=== PATIENT | female | born 1940 | race Caucasian/White ===

== ENCOUNTER → 2022-01-21 11:35 | Outpatient (CLI) | payer MEDICARE, SELFPAY ==
--- NOTE | ~2022-01-21 | DEXA_ITS ---
Bone Density Report Name: ANTONINO HAWKINS Age: 81 Sex: Female Ethnicity: White Date of : 1940 Indication: postmenopausal; screening for osteoporosis; height loss; hysterectomy; Referring Provider: WARNER CUEVA Study: Bone densitometry was performed. Exam Date: January 21, 2022 Accession number: [id number] Bone Density: Region BMD T-score Z-score Classification AP Spine (L1-L4) 1.298 2.3 5.0 Normal Femoral Neck (Left) 0.704 -1.3 1.0 Osteopenia Total Hip (Left) 1.006 0.5 2.6 Normal Femoral Neck (Right) 0.827 -0.2 2.2 Normal Total Hip (Right) 0.973 0.3 2.4 Normal Total Hip Mean 0.990 0.4 2.5 Normal World Health Organization criteria for BMD impression classify patients as: Normal (T-score at or above -1.0), Osteopenia (T-score between -1.0 and -2.5), or Osteoporosis (T-score at or below -2.5). 10-year Fracture Risk(1): Major Osteoporotic Fracture 11% Hip Fracture 2.4% Reported Risk Factors: [place] (), Neck BMD=0.704, BMI=41.2 (1) FRAX(R) Version 3.08. Fracture probability calculated for an untreated patient. Fracture probability may be lower if the patient has received treatment. Clinical Information Provided by Patient: Has used the following medications: Vitamin D Has the following medical conditions: Hysterectomy Patient maximum height was 66 Menopause Age: 52 No regular weight bearing exercise Onset of menses at age 11 Number of children 3 Impression: The patient has low bone mass, based on the Left Femoral Neck T-score. The patient has an estimated ten-year risk of hip fracture of 2.4% and an estimated ten-year risk of major fracture of 11%, based on the WHO FRAX algorithm. Discussion: BONE DENSITY IS LOW AT ONE OR MORE SKELETAL SITES. This patient's lowest T-score is low at one or more skeletal sites. It meets the World Health Organization's (WHO) criteria for ?low bone mass? (T-score between -1.0 and -2.5). The patient's 10-year risk of fracture as calculated by FRAX is less than the threshold where pharmacological therapy is recommended by the National Osteoporosis Foundation (NOF). However, all treatment decisions require clinical judgment and consideration of individual patient factors, including patient preferences, comorbidities, previous drug use, risk factors not captured in the FRAX model (e.g., frailty, falls, vitamin D deficiency, increased bone turnover, interval significant decline in bone density) and possible under or overestimation of fracture risk by FRAX. The patient should follow a healthful lifestyle (good nutrition with adequate calcium and vitamin D, and appropriate weight-bearing exercise). Follow-Up: Consider repeating this study in 2 to 3 years to reassess this patient's status, or sooner if there is some new clinical indication. Rep
--- NOTE | ~2022-01-21 | MM_ITS ---
EXAMINATION: MM screening siddhartha BI w jesus HISTORY: Screening mammogram TECHNIQUE: Craniocaudal and mediolateral oblique 3-D tomosynthesis images were obtained and synthetic 2-D images were generated. CAD analysis was submitted and interpreted. COMPARISON: 10/23/2014 bilateral screening mammogram BREAST PARENCHYMAL COMPOSITION: The breasts are almost entirely fatty. FINDINGS: There is no evidence of suspicious mass, calcification, or architectural distortion to sugg est malignancy in either breast. There has been no suspicious interval change. IMPRESSION: 1. No mammographic evidence of malignancy. 2. Recommend routine screening mammography in one year. BI-RADS Category 1: Negative Reviewed, dictated and finalized at location A.
== END ==
DX: Z12.31 Encounter for screening mammogram for malignant neoplasm of breast (principal); Z78.0 Asymptomatic menopausal state; M85.852 Other specified disorders of bone density and structure, left thigh
CPT/HCPCS: 77063; 77067; 77080

== ENCOUNTER 2024-04-11 12:09 | Inpatient (IN) | payer MEDICARE, SELFPAY ==
[2024-04-11] VITALS (14 sets, daily range): BP systolic 122–198; BP diastolic 53–98; PULSE 77–97; RESP 18–22; TEMP 36.4–36.6; O2SAT 95–100; BMI 36.6
--- NOTE | ~2024-04-11 | NM_ITS ---
EXAMINATION: NM doni stress w perfusion DATE: 04/12/2024 12:40 INDICATION: Chest pain. TECHNIQUE: Rest images were obtained following intravenous administration of 9 mCi Tc99m tetrofosmin (Myoview). The patient was infused intravenously with Lexiscan (regadenoson). Then, 28.3 mCi Tc99m te trofosmin (Myoview) was administered intravenously, and stress images were obtained. Data was reconst ructed into short axis and horizontal and vertical long axis SPECT images. Gated SPECT images were al so obtained. COMPARISON: None. FINDINGS: Breast attenuation artifact is noted. There is a moderate-sized, moderate-severity, fixed p erfusion defect involving apical septal, mid anteroseptal, and mid inferoseptal segments of left vent ricle, consistent with infarct. No reversible component to suggest ischemia. There is no segmental wa ll motion abnormality. Left ventricular ejection fraction measures >70%. IMPRESSION: 1. Moderate-sized area of mild infarct involving apical septal, mid anteroseptal, and mid inferosepta l segments of left ventricle. 2. Normal left ventricular ejection fraction measuring >70%. Reviewed, dictated and finalized at location A. IMPRESSION: 1. Moderate-sized area of mild infarct involving apical septal, mid anterosepta l, and mid inferoseptal segments of left ventricle. 2. Normal left ventricular ejection fraction measuring >70%.
--- NOTE | ~2024-04-11 | CT_ITS ---
EXAMINATION: CTA chest PE protocol DATE: 04/13/2024 10:29 INDICATION: Chest pain. TECHNIQUE: Computed tomography angiography (CTA) of the chest was performed with 100 mL Omnipaque-350 intravenous contrast timed to evaluate the pulmonary arteries. Coronal maximum intensity projection 3D-reconstructions were created by the technologist. Automated exposure control and iterative reconst ruction technique were employed. The dose-length product was 589.25 mGy-cm. COMPARISON: None. FINDINGS: There is mild atelectasis bilaterally. There is mild scarring at right lung apex. No pleura l effusion. The heart size is normal. No pericardial effusion. There are acute pulmonary emboli in al l lobes including in the distal right main pulmonary artery. There is severe cervical and thoracic sp ondylosis. Thoracic levoscoliosis is noted. IMPRESSION: 1. Acute pulmonary emboli in all lobes. Reviewed, dictated and finalized at location A.
--- NOTE | ~2024-04-11 | XR_ITS ---
EXAMINATION: XR chest 2V DATE: 04/11/2024 15:46 INDICATION: Shortness of breath. TECHNIQUE: Frontal and lateral views of the chest were obtained. COMPARISON: None. FINDINGS: There is mild elevation of right hemidiaphragm. No pneumonia, pleural effusion, or pneumoth orax. The heart size is normal. IMPRESSION: 1. No acute cardiopulmonary disease. Reviewed, dictated and finalized at location A.
--- NOTE | ~2024-04-11 | US_ITS ---
EXAMINATION: US venous doppler [facility] DATE: 04/11/2024 15:44 INDICATION: Lower limb edema. TECHNIQUE: Grayscale ultrasound images without and with compression and Doppler ultrasound images of the bilateral lower extremity veins were obtained. COMPARISON: None. FINDINGS: The visualized portions of right common femoral vein, profunda (deep) femoral vein, femoral vein, pop liteal vein, peroneal veins, posterior tibial veins, and greater saphenous vein outflow are patent. The visualized portions of left common femoral vein, profunda femoral vein, femoral vein, popliteal v ein, peroneal veins, posterior tibial veins, and greater saphenous vein outflow are patent. IMPRESSION: 1. No deep venous thrombosis. Reviewed, dictated and finalized at location A.
--- NOTE | 2024-04-11 12:30 | ECG_ITS ---
Test Date: 2024-04-11 12:46:48 Measurements Intervals [place] Rate: 93 P: 14 CT: 160 QRS: -33 QRSD: 149 T: 106 QT: 405 QTc: 505 Interpretive Statements SINUS RHYTHM LEFT AXIS DEVIATION LEFT BUNDLE BRANCH BLOCK BASELINE ARTIFACT- I, II, III, AVR, AVL, AVF, V1-V6 ABNORMAL ECG No previous ECG available for comparison Electronically Signed On 04-11-2024 12:51:19 CDT by Skyler Shah D.O.
--- NOTE | 2024-04-11 14:45 | ED.SOB ---
HPI - SOB/Dyspnea General Chief Complaint: Shortness of Breath/Dyspnea <Brooke Trinidad PA-C - Last Filed: 04/13/24 10:40> Stated Complaint: shortness of breath <Brooke Trinidad PA-C - Last Filed: 04/13/24 10:40> Time Seen by Provider: 04/11/24 14:45 <Brooke Trinidad PA-C - Last Filed: 04/13/24 10:40> Focused HPI: This is an 83-year-old female that presents to the emergency department for shortness of breath. Ongoing over the last week. Reports associated cough. Also reports swelling in her lower legs. Reports some chest heaviness. Denies fevers. GENERAL: Well-appearing, well-nourished, and in no acute distress. HEAD: Normocephalic, atraumatic. CHEST: Clear to auscultation. ?No respiratory distress. HEART: Regular rate and rhythm.? NEURO: ?Alert and oriented x3. Patient screened in triage and initial orders placed.? ?Additional care and disposition to be based upon?diagnostic testing and treatment. <Brooke Trinidad PA-C - Last Filed: 04/13/24 10:40> History of Present Illness HPI Narrative: Agree with the HPI. Patient reports progressive dyspnea on exertion over last week and a half. Reports occasional when she is exerting herself she is so dyspneic and has somewhat chest pressure that she becomes diaphoretic. She has no history of [place]. Her last stress test was 6 years ago. She gets most of her care from [facility]. Patient has developed new edema in her legs bilaterally over the same amount of time. <Kush Ortega MD - Last Filed: 04/11/24 22:09> Related Data Home Medications: Home Medications Medication Instructions Recorded Confirmed acetaminophen 325 mg capsule 325 mg PO ONCE PRN Pain 04/11/24 04/11/24 (Tylenol) aspirin 325 mg tablet 650 mg PO HS 04/11/24 04/11/24 levothyroxine 125 mcg tablet 125 mcg PO DAILY 04/11/24 04/11/24 losartan 100 mg tablet 100 mg PO DAILY 04/11/24 04/11/24 <Brooke Trinidad PA-C - Last Filed: 04/13/24 10:40> Allergies/Adverse Reactions: Allergies Allergy/AdvReac Type Severity Reaction Status Date / Time codeine Allergy Mild ANXIETY Verified 04/11/24 19:34 Penicillins Allergy Mild ITCHING Verified 04/11/24 19:34 AND SWELLING <Brooke Trinidad PA-C - Last Filed: 04/13/24 10:40> Review of Systems Review of Systems: All systems reviewed & are unremarkable except as noted in HPI and below <Kush Ortega MD - Last Filed: 04/11/24 22:09> Constitutional: Constitutional: Reports no additional constitutional complaints <Kush Ortega MD - Last Filed: 04/11/24 22:09> ENT: Reports system reviewed and no additional complaints, except as documented <Kush Ortega MD - Last Filed: 04/11/24 22:09> Cardiovascular: Cardiovascular: Reports chest pain, Denies rapid heart rate and Denies radiating jaw, neck or arm pain <Kush Ortega MD - Last Filed: 04/11/24 22:09> Respiratory: Respiratory: Denies cough, Reports dyspnea and Denies wheezing <Kush Ortega MD - Last Filed: 04/11/24 22:09> Gastrointestinal: Gastrointestinal: Reports no additional gastrointestinal complaints <Kush Ortega MD - Last Filed: 04/11/24 22:09> [facility] Past Medical History Medical History: Medical History (Updated 04/11/24 @ 22:22 by Aure Marshall PA-C) Hypertension Hypothyroidism Psoriatic arthritis <Brooke Trinidad PA-C - Last Filed: 04/13/24 10:40> Surgical History Surgical History: Surgical History (Updated 04/11/24 @ 22:19 by Aure Marshall PA-C) History of endometrial biopsy History of left cataract extraction History of total abdominal hysterectomy and bilateral salpingo-oophorectomy (01/2015) <Brooke Trinidad PA-C - Last Filed: 04/13/24 10:40> Family History Family History: Family History Son Blastic NK-cell lymphoma Mother Hypertension Acute myocardial infarction Congestive heart failure Mother Chronic obstructive pu
[2024-04-11 16:11] LABS: Basophils Absolute Auto 0.1 K/mm3 (0.0-0.1); Basophils Percent Auto 0.6 % (0.2-1.2); Eosinophils Absolute Auto 0.1 K/mm3 (0-0.3); Eosinophils Percent Auto 0.9 % (0-4.4); Hematocrit 43.6 % (37.0-47.0); Hemoglobin 14.2 g/dL (12.0-15.0); Immature Granulocyte Absolute 0.04 K/mm3 (0.00-0.031); Immature Granulocyte Percent A 0.4 % (0-0.5); Lymphocytes Absolute Auto 3.91 K/mm3 (0.9-3.2); Lymphocytes Percent Auto 36.2 % (18.3-44.2); Mean Corpuscular HGB Conc 32.6 g/dl (32-36); Mean Corpuscular Hemoglobin 30.9 pg (26-34); Mean Platelet Volume 9.5 fl (7.4-10.4); Monocytes Absolute Auto 0.7 K/mm3 (0.1-0.6); Monocytes Percent Auto 6.9 % (2.6-8.5); Neutrophils Absolute Auto 5.9 K/mm3 (1.3-6.7); Platelet Count Result 160 k/mm3 (150-375); Red Blood Count 4.59 M/mm3 (4.2-5.4); Red Cell Distribution Width 13.4 % (11.5-14.5); White Blood Count 10.8 K/mm3 (4.5-10.0)
[2024-04-11 16:22] LABS: Alanine Aminotransferase 21 U/L (6-35); Albumin Level 4.3 g/dL (3.5-5.1); Alkaline Phosphatase 87 U/L (38-126); Anion Gap 8 mmol/L (4-12); Aspartate Amino Transferase 31 U/L (14-36); Bilirubin,Total 2.3 mg/dL (0.2-1.3); Blood Urea Nitrogen 17 mg/dL (7-17); Calcium 9.2 mg/dL (8.4-10.2); Carbon Dioxide 29 mmol/L (22-30); Chloride 98 mmol/L (98-107); Estimated CRCL calculation 40 ml/min; Estimated Glomerular Filt Rate 47; Glucose 92 mg/dL (65-110); Lipase 89 U/L (23-300); Partial Thromboplastin Time 24.3 Seconds (22.3-36.8); Potassium 3.4 mmol/L (3.4-5.0); Sodium 135 mmol/L (137-145)
[2024-04-11 16:34] LABS: Troponin I 0.022 ng/mL (0.000-0.034)
[2024-04-11 16:46] LABS: Influenza A QL RT-PCR Negative (Negative); Influenza B QL RT-PCR Negative (Negative); RSV RNA, RT-PCR Negative (Negative); SARS-CoV-2 RNA PCR Negative (Negative)
[2024-04-11 17:14] LABS: Troponin I 0.023 ng/mL (0.000-0.034)
--- NOTE | 2024-04-11 17:55 | PM.IMHP ---
H&P: HPI History of Present Illness Date/Time: 04/11/24 18:30 Chief Complaint: Shortness of breath and chest heaviness. Narrative: This is an 83-year-old female with hypertension and hypothyroidism who presented to the emergency department via private vehicle for evaluation of shortness of breath and chest heaviness. The patient provides the following history. Last week she went shopping and while walking around the store she felt some heaviness on the left side of her chest associated with sweats and increasing shortness of breath. Her symptoms improved with rest. However she continues to have intermittent symptoms which seemed to be related to exertion. She has no known history of cardiac disease and reports having a negative stress test done several years ago. She denies syncope, near syncope, pleuritic pain, orthopnea, paroxysmal nocturnal dyspnea, nausea, vomiting, and calf pain. In the ED: She was afebrile on arrival. Blood pressures have been running high, in the 170s to 180s systolic. Labs are significant for WBC count of 10.8, sodium 135, creatinine 1.10, total bilirubin 2.3, troponin 0.022. EKG showed sinus rhythm with left axis deviation left bundle-branch block. She tested negative for influenza, RSV, and COVID. Lower extremity venous Doppler ultrasounds were negative for DVT. Chest x-ray showed no acute cardiopulmonary disease. She is being admitted in this setting for close monitoring and Cardiology consultation. Review of Systems Review of Systems: 12 systems were reviewed and are negative except for as per HPI. [facility] Past Medical History Medical History (Updated 04/11/24 @ 22:22 by Aure Marshall PA-C) Hypertension Hypothyroidism Psoriatic arthritis Surgical History Surgical History (Updated 04/11/24 @ 22:19 by Aure Marshall PA-C) History of endometrial biopsy History of left cataract extraction History of total abdominal hysterectomy and bilateral salpingo-oophorectomy (01/2015) Family History Family History Son Blastic NK-cell lymphoma Mother Hypertension Acute myocardial infarction Congestive heart failure Mother Chronic obstructive pulmonary disease Social History Social History (Updated 04/11/24 @ 22:19 by Aure Marshall PA-C) Social History: Surrogate medical decision maker: Emerald Garcia, daughter. Code status: Full code. Smoking status: Never smoker Alcohol intake: current Other substance usage details: 1 drink approximately every 4 months Do You Feel Safe in your Home?: Yes Lack of Transportation: No Lack of Food: Never True Current Housing: I Have Housing Concerned About Future Housing: No Difficulty Paying Gas/Electric Bills: No Difficulty Paying for Meds: No Currently Unemployed: No Education: Trade/Vocational Certificate Difficulty w/ Childcare or Family Care: No Spiritual care concerns: No Meds Home Medications and Allergies Home Medications Medication Instructions Recorded Confirmed Type acetaminophen 325 mg capsule 325 mg PO ONCE PRN Pain 04/11/24 04/11/24 History (Tylenol) aspirin 325 mg tablet 650 mg PO HS 04/11/24 04/11/24 History levothyroxine 125 mcg tablet 125 mcg PO DAILY 04/11/24 04/11/24 History losartan 100 mg tablet 100 mg PO DAILY 04/11/24 04/11/24 History Allergies Allergy/AdvReac Type Severity Reaction Status Date / Time codeine Allergy Mild ANXIETY Verified 04/11/24 19:34 Penicillins Allergy Mild ITCHING Verified 04/11/24 19:34 AND SWELLING Vital Signs Vital Signs - 24 hr 04/11/24 12:20 04/11/24 15:10 04/11/24 14:59 Temperature 97.6 F 97.7 F Pulse Rate 97 83 Respiratory Rate 22 H 20 Blood Pressure 122/66 180/67 H Pulse Oximetry 97 100 Oxygen Delivery Room Air Room Air 04/11/24 16:01 04/11/24 16:31 04/11/24 17:01 Temperature 97.8 F 97.8 F Pulse Rate 95 84 82 Respiratory Rate 19 19 18 Blood Pressure
--- NOTE | 2024-04-11 19:08 | ADMGEN ---
This patient, Adamaris Elliott, was admitted to IMU Room 206-02. Patient/family oriented to hospital policies and general routines including ID bracelet, bed and alarms, visiting hours, pain management, procedures, bathroom and other care routines, personal items, smoking policy, room service/diet, and visiting hours. Information on how to activate the Rapid Response Team has been discussed. Patient/Family are encouraged to report perceived risks to care and to ask questions if they do not understand what they are told or what they should do.
[2024-04-11] MEDS: carvediloL 6.25 MG TABLET PO (20:44)
[2024-04-11] MEDS: ACETAMINOPHEN 325 MG TABLET 650 MG PO (20:45)
[2024-04-11 21:24] LABS: Cholesterol 221 mg/dL (0-200); HDL Direct 89 mg/dL; Triglycerides 76 mg/dL (<150)
[2024-04-11 21:46] LABS: LDL Cholesterol Direct 104 mg/dL
[2024-04-11 21:47] LABS: Troponin I 0.025 ng/mL (0.000-0.034)
[2024-04-12] VITALS (18 sets, daily range): BP systolic 138–167; BP diastolic 52–71; PULSE 67–103; RESP 16–20; TEMP 36–36.6; O2SAT 94–99
--- NOTE | 2024-04-12 | ECHO_ITS ---
Patient Info Name: Adamaris Elliott Age: 83 years : 1940 Gender: Female Ht: 65 in Wt: 223 lbs BSA: 2.20 m2 HR: 72 bpm BP: 161 / 71 mmHg Heart Rhythm: Sinus Rhythm Technical Quality: Fair Exam Date: 04/12/2024 4:15 PM Exam Location: Echo Lab Patient Status: Inpatient Admit Date: 04/12/2024 Staff Ordering Physician: Skyler Shah DO Lei Maker: Ella Ji RDCS Attending Provider: Ronak Resendez MD Referring Physician: Pablo ROSS; Exam Type: CA echo doppler color flow Study Info Indications - sob Complete two-dimensional, color flow and Doppler transthoracic echocardiogram is performed with contrast to opacify the left ventricle and to improve the deliniation of the left ventricle endocardial borders. Contrast/Agitated Saline Contrast/Ag. Saline: Definity Amount: 2.00 ml Administered By: Ella Ji RDCS Existing IV Access: Yes IV Access Condition: patent with no signs of infiltration Summary 1. Definity contrast administered improved wall motion interpretation. 2. Left ventricular chamber dimension is normal. 3. Left ventricular systolic function is normal, estimated at 60-65%. 4. Left ventricular septal wall motion is abnormal with septal motion related to bundle branch block. 5. The left ventricular diastolic function is grade I diastolic dysfunction. 6. E/e' 12 is mildly elevated. 7. There is mild aortic valve sclerosis. 8. No pulmonary hypertension, estimated pulmonary arterial systolic pressure is 32 mmHg. Left Ventricle Definity contrast administered improved wall motion interpretation. E/e' 12 is mildly elevated. Left ventricular chamber dimension is normal. Left ventricular systolic function is normal, estimated at 60-65%. Left ventricular septal wall motion is abnormal with septal motion related to bundle branch block. The left ventricular diastolic function is grade I diastolic dysfunction. Right Ventricle Right ventricular chamber dimension is normal. Right ventricular systolic function is normal. Left Atria Left atrial chamber dimension is normal. Right Atria Right atrial chamber dimension is normal. Aortic Valve The aortic valve is trileaflet. There is mild aortic valve sclerosis. There is no aortic valve stenosis. There is no aortic valve regurgitation. Pulmonic Valve There is no pulmonic regurgitation. Mitral Valve There is no mitral valve stenosis. There is no mitral valve regurgitation. Tricuspid Valve There is no tricuspid valve regurgitation. No pulmonary hypertension, estimated pulmonary arterial systolic pressure is 32 mmHg. Pericardium/Pleural There is no pericardial effusion. Inferior Vena Cava Normal inferior vena cava with >50% collapse upon inspiration consistent with normal right atrial pressure, 5 mmHg. Aorta The aortic root size at the sinus of Valsalva is normal. Left Ventricular Outflow Tract Name Value Normal LVOT 2D LVOT Diameter 2.0 cm LVOT Doppler LVOT Peak Gradient 4 mmHg LVOT Mean Gradient 2 mmHg LVOT VTI 19 cm LVOT VTI/AV VTI Ratio 0.6
--- NOTE | 2024-04-12 00:09 | PC.NURSE ---
This RN assumed care of patient 04/12 2026. Report received from Chio Stinson RN
[2024-04-12 05:16] LABS: Hematocrit 39.5 % (37.0-47.0); Hemoglobin 12.7 g/dL (12.0-15.0); Mean Corpuscular HGB Conc 32.2 g/dl (32-36); Mean Corpuscular Hemoglobin 30.6 pg (26-34); Mean Corpuscular Volume 95.2 fl (80-100); Mean Platelet Volume 9.9 fl (7.4-10.4); Platelet Count Result 154 k/mm3 (150-375); Red Blood Count 4.15 M/mm3 (4.2-5.4); Red Cell Distribution Width 13.5 % (11.5-14.5); White Blood Count 8.9 K/mm3 (4.5-10.0)
[2024-04-12 05:31] LABS: Cholesterol 197 mg/dL (0-200); HDL Direct 78 mg/dL; Triglycerides 68 mg/dL (<150)
[2024-04-12 05:35] LABS: Alanine Aminotransferase 18 U/L (6-35); Albumin Level 3.5 g/dL (3.5-5.1); Alkaline Phosphatase 69 U/L (38-126); Anion Gap 7 mmol/L (4-12); Aspartate Amino Transferase 26 U/L (14-36); Blood Urea Nitrogen 18 mg/dL (7-17); Calcium 8.6 mg/dL (8.4-10.2); Carbon Dioxide 27 mmol/L (22-30); Chloride 103 mmol/L (98-107); Estimated CRCL calculation 38 ml/min; Estimated Glomerular Filt Rate 43; Glucose 118 mg/dL (65-110); Magnesium 1.9 mg/dL (1.6-2.3); Potassium 3.6 mmol/L (3.4-5.0); Sodium 137 mmol/L (137-145)
[2024-04-12 05:42] LABS: LDL Cholesterol Direct 88 mg/dL
[2024-04-12 06:00] LABS: D Dimer 13.61 ug/mL (<0.48)
[2024-04-12] MEDS: LEVOTHYROXINE SODIUM 125 MCG TABLET PO (06:18)
--- NOTE | 2024-04-12 08:07 | PM.CNCAR ---
Assessment and Plan Assessment and plan (1) Chest pain: Qualifiers: Chest pain type: unspecified Qualified Code(s): R07.9 - Chest pain, unspecified Code(s): R07.9 - Chest pain, unspecified Status: Acute Assessment and Plan: She has been r/o for SD by serial troponin and EKG. Obtain lexiscan myoview stress test. (2) Dyspnea on exertion: Code(s): R06.09 - Other forms of dyspnea Status: Acute Assessment and Plan: Obtain echo. (3) Hypertension: Code(s): I10 - Essential (primary) hypertension Status: Acute Assessment and Plan: High. Started Coreg 6.25 mg BID. Monitor BP. History of Present Illness History of Present Illness Consult date/time: 04/12/24 08:07 Reason For Visit: Dyspnea on exertion Narrative: 83 yr old woman presents to ER with chest pain and sob. She has a history of hypertension. Reports having chest pressure in mid chest and sob yesterday while walking around a store, and improved with rest. She took aspirin and advil yesterday for it. Currently not having chest discomfort or sob. Denies palpitations, edema, dizziness. Review of Systems Review of Systems: All systems reviewed & are unremarkable except as noted in HPI and below Constitutional: Constitutional: Reports as per HPI, Denies chills and Denies fever(s) Cardiovascular: Cardiovascular: Reports as per HPI, Reports chest pain and Denies irregular heart rhythm Respiratory: Respiratory: Reports as per HPI and Reports dyspnea Gastrointestinal: Gastrointestinal: Reports as per HPI and Denies abdominal pain Genitourinary: Genitourinary: Reports as per HPI and Denies dysuria Musculoskeletal: Musculoskeletal: Reports as per HPI Neurologic: Reports as per HPI, Denies dizziness and Denies syncope [facility] Past Medical History Medical History (Updated 04/11/24 @ 22:22 by Aure Marshall PA-C) Hypertension Hypothyroidism Psoriatic arthritis Surgical History Surgical History (Updated 04/11/24 @ 22:19 by Aure Marshall PA-C) History of endometrial biopsy History of left cataract extraction History of total abdominal hysterectomy and bilateral salpingo-oophorectomy (01/2015) Family History Family History Son Blastic NK-cell lymphoma Mother Hypertension Acute myocardial infarction Congestive heart failure Mother Chronic obstructive pulmonary disease Social History Social History (Updated 04/11/24 @ 22:19 by Aure Marshall PA-C) Social History: Surrogate medical decision maker: Emerald Garcia, daughter. Code status: Full code. Smoking status: Never smoker Alcohol intake: current Other substance usage details: 1 drink approximately every 4 months Do You Feel Safe in your Home?: Yes Lack of Transportation: No Lack of Food: Never True Current Housing: I Have Housing Concerned About Future Housing: No Difficulty Paying Gas/Electric Bills: No Difficulty Paying for Meds: No Currently Unemployed: No Education: Trade/Vocational Certificate Difficulty w/ Childcare or Family Care: No Spiritual care concerns: No Meds Home Medications and Allergies Home Medications Medication Instructions Recorded Confirmed Type acetaminophen 325 mg capsule 325 mg PO ONCE PRN Pain 04/11/24 04/11/24 History (Tylenol) aspirin 325 mg tablet 650 mg PO HS 04/11/24 04/11/24 History levothyroxine 125 mcg tablet 125 mcg PO DAILY 04/11/24 04/11/24 History losartan 100 mg tablet 100 mg PO DAILY 04/11/24 04/11/24 History Allergies Allergy/AdvReac Type Severity Reaction Status Date / Time codeine Allergy Mild ANXIETY Verified 04/11/24 19:34 Penicillins Allergy Mild ITCHING Verified 04/11/24 19:34 AND SWELLING Vital Signs Vital Signs - 24 hr 04/11/24 12:20 04/11/24 15:10 04/11/24 14:59 Temperature 97.6 F 97.7 F Pulse Rate 97 83 Respiratory Rate 22 H 20 B
--- NOTE | 2024-04-12 08:31 | PM.IMPN ---
Progress Note: A&P Assessment and Plan (1) Chest pain: Qualifiers: Chest pain type: unspecified Qualified Code(s): R07.9 - Chest pain, unspecified Code(s): R07.9 - Chest pain, unspecified Status: Acute (2) Lower extremity edema: Code(s): R60.0 - Localized edema Status: Acute (3) Hypertension: Code(s): I10 - Essential (primary) hypertension Status: Acute (4) Hypothyroidism: Code(s): E03.9 - Hypothyroidism, unspecified Status: Acute Plan This is an 83-year-old female with hypertension and hypothyroidism who presented to the emergency department via private vehicle for evaluation of shortness of breath and chest heaviness. The patient provides the following history. Last week she went shopping and while walking around the store she felt some heaviness on the left side of her chest associated with sweats and increasing shortness of breath. Her symptoms improved with rest. However she continues to have intermittent symptoms which seemed to be related to exertion. She has no known history of cardiac disease and reports having a negative stress test done several years ago. She denies syncope, near syncope, pleuritic pain, orthopnea, paroxysmal nocturnal dyspnea, nausea, vomiting, and calf pain. In the ED: She was afebrile on arrival. Blood pressures have been running high, in the 170s to 180s systolic. Labs are significant for WBC count of 10.8, sodium 135, creatinine 1.10, total bilirubin 2.3, troponin 0.022. EKG showed sinus rhythm with left axis deviation left bundle-branch block. She tested negative for influenza, RSV, and COVID. Lower extremity venous Doppler ultrasounds were negative for DVT. Chest x-ray showed no acute cardiopulmonary disease. She is being admitted in this setting for close monitoring and Cardiology consultation. History is concerning for angina and she is being admitted for close monitoring and Cardiology consultation. Echocardiogram ordered. Lexiscan ordered . Lower extremity venous Doppler ultrasounds were negative for DVT however pulmonary embolism remains a consideration. D-dimer quite elevated. Will get CTA chest. Blood pressures have been running in the 170s to 180s systolic. She is on losartan 100 mg daily. Add carvedilol and continue to monitor. Echo pending. Check BNP DVT prophylaxis Lovenox code status full code Subjective Date/time seen: 09/10/24 08:31 Interval history: Shortness of breath on exertion noted since a month. Intermittent chest pain. Leg swelling. No nausea vomiting. Minimal cough Review of Systems Review of Systems: All systems reviewed & are unremarkable except as noted in HPI and below Exam Narrative: General: Nontoxic-appearing female sitting up in bed. HEENT: PERRL, EOMI. Sclera anicteric. Oral mucosa moist. Neck: Supple. No JVD. Respiratory: No respiratory distress. Lung sounds are clear to auscultation. Cardiovascular: Regular rate and rhythm with S1-S2. Gastrointestinal: Abdomen is soft, obese, nontender, and nondistended with positive bowel sounds. Skin: Warm and dry. Extremities: No cyanosis or clubbing. Bilateral lower extremity edema, left greater than right. No palpable knots or cords. Negative Sujata sign bilaterally. Radial and pedal pulses intact. Neurological: Alert. Cranial nerves 2-12 are grossly intact. No gross focal deficits to casual conversation. Psychiatric: Pleasant and cooperative with normal mood and affect. Objective Data Vital Signs Vital Signs: Vital Signs - 24 hr 04/11/24 12:20 04/11/24 15:10 04/11/24 14:59 Temperature 97.6 F 97.7 F Pulse Rate 97 83 Respiratory Rate 22 H 20 Blood Pressure 122/66 180/67 H Pulse Oximetry 97 100 Oxygen Delivery Room Air Room Air Fraction of Inspired Oxygen 04/11/24 16:01 04/11/24 16:31 04/11/24 17:01 Temperature 97.8 F 97.8 F Pulse Rate 95 84 82 Respiratory Rate 19 19 18 Blood Pressure 198/96 H 185/88 H 176/90 H
[2024-04-12] MEDS: LOSARTAN POTASSIUM 100 MG TABLET PO (09:06)
[2024-04-12] MEDS: carvediloL 6.25 MG TABLET PO (09:06)
[2024-04-12] MEDS: ENOXAPARIN 40 MG/0.4 ML SYRINGE SUB-Q (09:06)
--- NOTE | 2024-04-12 11:14 | PC.NURSE ---
Patient complained of pain at the IV site while down in CT scanner for CTA. IV site flushed multiple times prior to going to CT with no issues noted. Patient denied pain when flushed. States that the pain is at the site of the tape. The site was retaped, yet she still complained. We discussed her getting the test completed since the IV was working well and the patient agreed. When she got to CT she refused the test and stated that she would tell the doctor she refused.
[2024-04-12 12:17] LABS: NT Pro B Type Natriuretic Pept 879 pg/mL (19.9-100)
[2024-04-12] MEDS: ACETAMINOPHEN 325 MG TABLET 650 MG PO (14:41)
[2024-04-12] MEDS: ENOXAPARIN 120 MG/0.8 ML SYRINGE 105 MG SUB-Q (15:45)
[2024-04-12] MEDS: PERFLUTREN LIPID MICROSPHERES 1.5 ML VIAL DILUTED TO 10 ML TOTAL VOLUME IV PUSH (16:30)
--- NOTE | 2024-04-12 16:56 | IVDEFINITY ---
Prior to administration of IV Definity the patient was educated on the risks and benefits of the imaging enhancing agent including potential adverse side effects. The patient verbalized understanding. Allergies were verified. No exclusion criteria were identified and at least one of the following inclusion criteria were met: 1) physician request, 2) patient technically difficult to image (per the [place] [employer] guidelines of two or more segments not discernable within the apical view), or 3) questionable left ventricular function. ?
--- NOTE | 2024-04-12 20:05 | EST_ITS ---
Patient Info Name: Adamaris Elliott Age: 83 years : 1940 Gender: Female Ht: 65 in Wt: 223 lbs BSA: 2.20 m2 HR: 73 bpm BP: 182 / 86 mmHg Exam Date: 04/12/2024 11:25 AM Exam Location: Echo Lab Patient Status: Outpatient Admit Date: 04/11/2024 Staff Ordering Physician: Skyler Shah DO Attending Provider: Ronak Resendez MD Exercise Physician: Skyler Shah DO Exam Type: CA stress doni w NM Study Info A regadenoson stress test was performed. Summary 1. 1. Inconclusive lexiscan stress test for ischemic ST changes by ECG criteria due to baseline LBBB. 2. 2. Baseline hypertension. 3. 3. Nuclear scan to follow and will be reported separately. Please correlate with it. 4. 4. Patient informed of the above results. Protocol: Lexiscan Stress ECG Details Stage: REST Duration (min): 4 min : 37 sec HR (bpm): 73 SBP (mmHg): 182 DBP (mmHg): 86 Stage: REST Duration (min): 8 min : 26 sec HR (bpm): 73 SBP (mmHg): 182 DBP (mmHg): 86 Stage: STAGE 1 Duration (min): 0 min : 59 sec HR (bpm): 87 SBP (mmHg): 182 DBP (mmHg): 86 Stage: RECOVERY Duration (min): 1 min : 0 sec HR (bpm): 89 SBP (mmHg): 182 DBP (mmHg): 86 Stage: RECOVERY Duration (min): 2 min : 0 sec HR (bpm): 85 SBP (mmHg): 180 DBP (mmHg): 94 Stage: RECOVERY Duration (min): 3 min : 0 sec HR (bpm): 98 SBP (mmHg): 180 DBP (mmHg): 94 Stage: RECOVERY Duration (min): 4 min : 0 sec HR (bpm): 80 SBP (mmHg): 180 DBP (mmHg): 94 Stage: RECOVERY Duration (min): 4 min : 7 sec HR (bpm): 80 SBP (mmHg): 180 DBP (mmHg): 94 Rest HR: 73 bpm Peak HR: 126 bpm Rest Sys BP: 182 mmHg Peak Sys BP: 180 mmHg Max Pred HR: 137 bpm % Max Pred HR: 92 % Target HR: 116 bpm Max RPP: 22,680 bpm*mmHg Termination Reason: Completed protocol Cardiac Symptoms: Shortness of breath Total Time: 1 min : 0 sec Rest Ramsay BP: 86 mmHg Peak Ramsay BP: 94 mmHg Total Dose: 0.4 mg Resting ECG Sinus rhythm, LBBB. Stress ECG No ST changes. Arrhythmias None. Report Signatures
[2024-04-12] MEDS: ASPIRIN 325 MG TABLET 81 MG PO (20:18)
[2024-04-12] MEDS: carvediloL 12.5 MG TABLET PO (20:18)
[2024-04-13] VITALS (8 sets, daily range): BP systolic 142–161; BP diastolic 52–72; PULSE 63–84; RESP 16–22; TEMP 36.1–36.4; O2SAT 96–97
[2024-04-13 04:42] LABS: Basophils Absolute Auto 0.1 K/mm3 (0.0-0.1); Basophils Percent Auto 0.6 % (0.2-1.2); Eosinophils Absolute Auto 0.1 K/mm3 (0-0.3); Eosinophils Percent Auto 1.4 % (0-4.4); Hematocrit 37.4 % (37.0-47.0); Hemoglobin 11.8 g/dL (12.0-15.0); Immature Granulocyte Absolute 0.03 K/mm3 (0.00-0.031); Immature Granulocyte Percent A 0.4 % (0-0.5); Lymphocytes Absolute Auto 3.46 K/mm3 (0.9-3.2); Lymphocytes Percent Auto 41.3 % (18.3-44.2); Mean Corpuscular HGB Conc 31.6 g/dl (32-36); Mean Corpuscular Hemoglobin 30.3 pg (26-34); Mean Corpuscular Volume 95.9 fl (80-100); Monocytes Absolute Auto 0.6 K/mm3 (0.1-0.6); Monocytes Percent Auto 6.6 % (2.6-8.5); Neutrophils Absolute Auto 4.2 K/mm3 (1.3-6.7); Neutrophils Percent Auto 49.7 % (45.5-73.1); Platelet Count Result 152 k/mm3 (150-375); Red Cell Distribution Width 13.6 % (11.5-14.5); White Blood Count 8.4 K/mm3 (4.5-10.0)
[2024-04-13 04:58] LABS: Alanine Aminotransferase 17 U/L (6-35); Albumin Level 3.3 g/dL (3.5-5.1); Alkaline Phosphatase 65 U/L (38-126); Anion Gap 7 mmol/L (4-12); Aspartate Amino Transferase 29 U/L (14-36); Bilirubin,Total 1.8 mg/dL (0.2-1.3); Blood Urea Nitrogen 20 mg/dL (7-17); Calcium 8.6 mg/dL (8.4-10.2); Carbon Dioxide 25 mmol/L (22-30); Chloride 104 mmol/L (98-107); Estimated CRCL calculation 41 ml/min; Estimated Glomerular Filt Rate 47; Glucose 113 mg/dL (65-110); Magnesium 1.9 mg/dL (1.6-2.3); Potassium 3.9 mmol/L (3.4-5.0); Sodium 136 mmol/L (137-145)
[2024-04-13] MEDS: LEVOTHYROXINE SODIUM 125 MCG TABLET PO (05:52)
[2024-04-13] MEDS: ENOXAPARIN 120 MG/0.8 ML SYRINGE 105 MG SUB-Q (05:52)
--- NOTE | 2024-04-13 07:47 | PM.PNCARD ---
Progress Note: A&P Assessment and Plan (1) Chest pain: Qualifiers: Chest pain type: unspecified Qualified Code(s): R07.9 - Chest pain, unspecified Code(s): R07.9 - Chest pain, unspecified Status: Acute Assessment and Plan: Resolved. She has been r/o for [place] by serial troponin and EKG. 04/12/24 Lexiscan myoview stress test shows no reversible ischemia. (2) Dyspnea on exertion: Code(s): R06.09 - Other forms of dyspnea Status: Acute Assessment and Plan: 04/12/24 Echo shows EF 60-65%, grade I diastolic dysfunction (E/e' 12). (3) Hypertension: Code(s): I10 - Essential (primary) hypertension Status: Acute Assessment and Plan: High. Increase Coreg 12.5 mg BID and start Hydralazine 25 mg BID. Intolerant of Amlodipine due to chest pain in past. Monitor BP. If BP better later today, may d/c home and f/u with me in 1-2 weeks. Subjective Date/time seen: 04/13/24 07:47 Interval history: Denies chest pain or sob. Exam Const: General: cooperative, healthy appearing and comfortable Orientation/consciousness: oriented to person, oriented to place and oriented to time Resp: Auscultation: clear to auscultation bilaterally, no crackles, no rales, no rhonchi and no wheezes Cardio: Rate: regular rate Rhythm: regular rhythm Heart sounds: no murmurs Peripheral pulses: dorsalis pedis present Neuro: General: oriented to person, oriented to place and oriented to time Extrem: Right lower extremity: no edema Left lower extremity: no edema Objective Data Vital Signs Vital Signs: Vital Signs - 24 hr 04/12/24 08:02 04/12/24 08:00 04/12/24 08:00 Temperature Pulse Rate 70 70 Respiratory Rate 20 Blood Pressure Pulse Oximetry 98 98 Oxygen Delivery Room Air Room Air Fraction of Inspired Oxygen 04/12/24 12:45 04/12/24 12:00 04/12/24 12:00 Temperature 96.8 F L Pulse Rate 73 79 73 Respiratory Rate 20 20 Blood Pressure 138/58 L Pulse Oximetry 97 97 Oxygen Delivery Room Air Fraction of Inspired Oxygen 04/12/24 14:00 04/12/24 10:00 04/12/24 17:21 Temperature 97.2 F L Pulse Rate 98 72 69 Respiratory Rate 18 Blood Pressure 150/54 H Pulse Oximetry 98 Oxygen Delivery Fraction of Inspired Oxygen 04/12/24 16:00 04/12/24 16:00 04/12/24 18:00 Temperature Pulse Rate 67 69 77 Respiratory Rate 18 Blood Pressure Pulse Oximetry 98 Oxygen Delivery Room Air Fraction of Inspired Oxygen 21 04/12/24 20:00 04/12/24 20:18 04/12/24 20:00 Temperature 97.6 F Pulse Rate 75 72 Respiratory Rate 16 Blood Pressure 145/52 H Pulse Oximetry 99 Oxygen Delivery Room Air Fraction of Inspired Oxygen 04/12/24 20:00 04/12/24 23:34 04/12/24 23:45 Temperature 97.4 F L Pulse Rate 76 82 Respiratory Rate 20 Blood Pressure 167/54 H Pulse Oximetry 94 Oxygen Delivery Room Air Fraction of Inspired Oxygen 04/13/24 00:00 04/13/24 04:00 04/13/24 04:00 Temperature 97.5 F L Pulse Rate 63 64 Respiratory Rate 16 Blood Pressure 151/72 H Pulse Oximetry 97 Oxygen Delivery Room Air Fraction of Inspired Oxygen 04/13/24 04:00 Temperature Pulse Rate 68 Respiratory Rate Blood Pressure Pulse Oximetry Oxygen Delivery Fraction of Inspired Oxygen Intake/Output Intake/Output: Intake & Output 04/10/24 04/11/24 04/12/24 04/13/24 23:59 23:59 23:59 23:59 Intake Total 560 350 Output Total 0 Balance 560 350 Meds/Results Medications: Active Medications Generic Name Dose Route Start Last Admin Trade Name Freq PRN Reason Stop Dose Admin Acetaminophen 650 mg 04/11/24 17:34 04/12/24 14:41 Acetaminophen 325 Mg Tablet PO 650 mg Q4H PRN Administration Mild Pain (1-3) or Fever Hydrocodone Bitart/Acetaminophen 1 tab 04/11/24 17:34 Hydrocodone/Acetaminophen (*Crx) 5-325 Mg Tablet PO Q4H PRN Pain Rated 4-6 Aspirin 81 mg
[2024-04-13] MEDS: LOSARTAN POTASSIUM 100 MG TABLET PO (08:48)
[2024-04-13] MEDS: hydrALAZINE HCL 25 MG TABLET PO (08:48)
[2024-04-13] MEDS: carvediloL 12.5 MG TABLET PO (08:48)
[2024-04-13] MEDS: LORazepam INJ (*CRX) 2 MG/ML VIAL 0.5 MG IV PUSH (09:59)
--- NOTE | 2024-04-13 15:03 | PM.DS ---
DS: Admitting Diagnosis Discharge Date 04/13/24 Admitting Diagnosis Shortness of breath and CP DS: Discharge Diagnosis Discharge Diagnosis (1) Pulmonary embolism: Code(s): I26.99 - Other pulmonary embolism without acute cor pulmonale Status: Acute (2) Chest pain: Qualifiers: Chest pain type: unspecified Qualified Code(s): R07.9 - Chest pain, unspecified Code(s): R07.9 - Chest pain, unspecified Status: Acute (3) Lower extremity edema: Code(s): R60.0 - Localized edema Status: Acute (4) Hypertension: Code(s): I10 - Essential (primary) hypertension Status: Acute (5) Hypothyroidism: Code(s): E03.9 - Hypothyroidism, unspecified Status: Acute (6) Psoriatic arthritis: Code(s): L40.50 - Arthropathic psoriasis, unspecified Status: Acute DS: Summary Hospital Course Reason for hospitalization: 83yo female with hypertension and hypothyroidism who presented to the emergency department for evaluation of shortness of breath and chest heaviness. Please see H&P for details Hospital Course: Patient presented with shortness of breath and chest heaviness. She was afebrile on arrival. Blood pressures was in the 170s to 180s systolic. Labs are significant for WBC count of 10.8, sodium 135, creatinine 1.10, total bilirubin 2.3. Troponin negative x3. EKG showed sinus rhythm with left axis deviation and left bundle-branch block. Unclear if the bundle branch was new or old. She tested negative for influenza, RSV, and COVID. Lower extremity venous Doppler ultrasounds were negative for DVT. Chest x-ray showed no acute cardiopulmonary disease. She was admitted and Cardiology consulted. Total bili level trended down. Echo showing LV size and function normal with EF 60-65%, LV findings consistent with BBB, grade I diastolic dysfunction and normal RV without pulmonary HTN. No significant valvular disease. Lexiscan showing a moderate sized are of mild infarct involving the apical septal, mid anteroseptal and mid inferoseptal segments of the LV with EF >70%. These findings could be related to the BBB. AntiHTN medications were adjusted. DDimer was elevated at 13.6. She was started on therapeutic dosing of Lovenox on admission. CTA chest performed showing acute PE in all lobes but no heart strain noted. She was switched to Eliquis. She has been up walking with walker. Risk/benefit of Eliquis discussed. She overall did well and was able to be discharged on 04/13/24. Status at Discharge Cognitive/behavioral status at discharge: stable Time Spent with Patient Time attestation: Total time spent providing and/or coordinating discharge services: 34 minutes Exam Narrative: AF 96.9 142/52 68 18 96% ra Gen - NARD Chest - CTA bilaterally, nml RR CV - RRR S1/S2. Tele showing no acute dysrhythmias Abd - Soft, NT/ND, Positive BS Ext - trace pedal edema Psych - Nml mood and affect Skin - Warm and dry DS: Data Data Completed and Pending Labs on day of discharge: Labs from last 24 hours 04/13/24 04/13/24 03:58 03:57 WBC 8.4 RBC 3.90 L Hgb 11.8 L Hct 37.4 MCV 95.9 MCH 30.3 MCHC 31.6 L RDW 13.6 Plt Count 152 MPV 10.0 Immature Gran % (Auto) 0.4 Neut % (Auto) 49.7 Lymph % (Auto) 41.3 [place] % (Auto) 6.6 Eos % (Auto) 1.4 Baso % (Auto) 0.6 Lymph # (Auto) 3.46 H [place] # (Auto) 0.6 Eos # (Auto) 0.1 Baso # (Auto) 0.1 Abs Immat Gran (auto) 0.03 Absolute Neuts (auto) 4.2 Absolute Nucleated RBC 0.000 Nucleated RBC % 0.0 Sodium 136 L Potassium 3.9 Chloride 104 Carbon Dioxide 25 Anion Gap 7 BUN 20 H Creatinine 1.10 H Estim Creat Clear Calc 41 Estimated GFR 47 L Glucose 113 H Calcium 8.6 Magnesium 1.9 Total Bilirubin 1.8 H AST 29 ALT 17 Alkaline Phosphatase 65 Total Protein 6.0 L Albumin 3.3 L Discharge Plan Discharge Attending physician on discha
== END 2024-04-13 16:24 | disposition home or self-care (01) | DRG 176 ==
LOC: ANHED 17:54 → ANHIMU 18:22
PROVIDERS: Internal Medicine Cardiovascular Disease; Physician Assistant; Admitting Provider Internal Medicine; Emergency Provider Emergency Medicine; Visit Provider Internal Medicine
DX: I26.99 Other pulmonary embolism without acute cor pulmonale (principal); I10 Essential (primary) hypertension; E03.9 Hypothyroidism, unspecified; L40.50 Arthropathic psoriasis, unspecified; Z79.82 Long term (current) use of aspirin
CPT/HCPCS: 36415; 71046; 71275; 78452; 80053; 80061; 83690; 83735; 83880; 84443; 84484; 85025; 85027; 85380; 85610; 85730; 87637; 93005; 93017; 93306; 93970; 96372; 99285; A9270; A9502; G0378; J1650; J2060; J2785; Q9957; Q9967

== ENCOUNTER 2024-09-05 00:06 | Emergency (ER) | payer MEDICARE, SELFPAY ==
[2024-09-05] VITALS (15 sets, daily range): BP systolic 132–161; BP diastolic 41–62; PULSE 89–100; RESP 20–33; TEMP 37–37.5; O2SAT 91–96
--- NOTE | ~2024-09-05 | XR_ITS ---
Portable chest x-ray Comparison: 04/11/2024 Clinical History: Cough Findings: Questionable retrocardiac airspace disease. Right lung clear. No pleural effusion. Probabl e COPD. Cardiomediastinal silhouette is stable. Bones and soft tissues are unremarkable. Impression: Questionable retrocardiac airspace disease. Correlate for left lower lobe pneumonia. Underlying COPD. Reviewed, dictated and finalized at location . [employer] Impression: Questionable retrocardiac airspace disease. Correlate for left lower lobe pneum onia. Underlying COPD.
[2024-09-05 00:54] LABS: Influenza A QL RT-PCR Positive (Negative); Influenza B QL RT-PCR Negative (Negative); RSV RNA, RT-PCR Negative (Negative); SARS-CoV-2 RNA PCR Negative (Negative)
[2024-09-05] MEDS: SODIUM CHLORIDE 0.9% IV 1,000 ML 999 ML IV CONT (01:08)
[2024-09-05 01:13] LABS: Basophils Absolute Auto 0.1 K/mm3 (0.0-0.1); Basophils Percent Auto 0.8 % (0.2-1.2); Eosinophils Absolute Auto 0.2 K/mm3 (0-0.3); Eosinophils Percent Auto 2.9 % (0-4.4); Hematocrit 38.3 % (37.0-47.0); Hemoglobin 12.4 g/dL (12.0-15.0); Immature Granulocyte Absolute 0.03 K/mm3 (0.00-0.031); Immature Granulocyte Percent A 0.4 % (0-0.5); Lymphocytes Absolute Auto 1.41 K/mm3 (0.9-3.2); Lymphocytes Percent Auto 16.8 % (18.3-44.2); Mean Corpuscular HGB Conc 32.4 g/dl (32-36); Mean Corpuscular Hemoglobin 30.9 pg (26-34); Mean Corpuscular Volume 95.5 fl (80-100); Mean Platelet Volume 9.6 fl (7.4-10.4); Monocytes Absolute Auto 0.6 K/mm3 (0.1-0.6); Neutrophils Percent Auto 72.1 % (45.5-73.1); Platelet Count Result 191 k/mm3 (150-375); Red Blood Count 4.01 M/mm3 (4.2-5.4); Red Cell Distribution Width 12.5 % (11.5-14.5); White Blood Count 8.4 K/mm3 (4.5-10.0)
--- OUTSIDE RECORDS SUMMARY | 2024-09-05 01:18 | XMS_ITS | Patient Health Summary ---
Author Organization [facility] Address [address] [place] [address] Care Team Providers Care Roustabout Name Role Phone Ivan Santos MD Primary Care Provider Kali Golden MD Unavailable Note from [facility],non-owned Affiliates and Associated Physician Practices is amultiple site organization consisting of ambulatory clinics and [place] sitesin [place] and [place]. This disclosure is being madepursuant to the Care Everywhere program and may not contain all information available regarding this patient. Last updated 18.[facility] Allergies * Codeine(Psychiatric) -Medium Criticality * Penicillins(Swelling) -Medium Criticality Medications * Be aware that medications may not be up to date on this document. Alwaysverify current medications with the patient. * Vitamin D3 (CHOLECALCIFEROL) 50 MCG (2000 UT) capsule Take 2,000 Units by mouth once daily * estradiol (ESTRACE) 0.1 MG/GM vaginal cream(Started 10/29/2018) Apply 08/06 applicator (1g) to the vagina 2-3 times per week (such as Thursday/Thursday/Thursday) * ibuprofen (MOTRIN) 200 MG tablet Take 400 mg by mouth every 8 hours as needed * levothyroxine (SYNTHROID) 125 MCG tablet(Started 09/22/2019) 125 daily except Sundays just 1/2 tab * losartan (COZAAR) 100 MG tablet(Started 10/18/2019) Take 1 tablet by mouth once daily * ketoconazole (NIZORAL) 2 % shampoo(Started 12/06/2019) APPLY TOPICALLY TO DAMP SKIN ON THE SCALP FACE CHEST AND ARMPITS LATHER LEAVE ON 5 MINUTES AND RINSE * mupirocin (BACTROBAN) 2 % ointment(Started 12/06/2019) APPLY OINTMENT TOPICALLY TO AFFECTED AREA ON THE CHEST THREE TIMES DAILY * folic acid (FOLVITE) 1 MG tablet(Started 08/24/2020) Take 1 (one) tablet by mouth once daily 4 refills by 08/24/2021 Active Problems No known active problems Immunizations * INFLUENZA VACCINE, HIGH-DOSE, QUADR. (FLUZONE HIGH-DOSE QUADRIVALENT; 65Y+), 0.7 ML (HD-IIV4)(Given 08/21/2012) * PNEUMOCOCCAL PPSV23(Given 08/06/2017) * Pneumococcal Pcv13 Conj(Given 11/29/2014) Social History Tobacco Use Types Packs/Day Years Used Date Smoking Tobacco: Never Smokeless Tobacco: Never Tobacco Cessation:Counseling Given: No Alcohol Use Standard Drinks/Week Comments Not Currently 0 (1 standard drink = 0.6 oz pur e alcohol) No alcohol Sex and Gender Information Value Date Recorded Sex Assigned at Not on file Gender Identity Not on file Sexual Orientation Not on file Last Filed Vital Signs Vital Sign Reading Time Taken Comments Blood Pressure 146/82 10/15/2020 11:23 AM CDT Pulse 88 10/15/2020 11:23 AM CDT Temperature 36.3 ??C (97.3 ??F) 10/15/2020 11:23 AM C DT Respiratory Rate - - Oxygen Saturation 97% 07/05/2020 1:03 PM IMMIGRATION GUARD Inhaled Oxygen Concentration - - Weight 102.1 kg (225 lb) 10/15/2020 11:23 AM CDT Height 166.4 cm (5' 5.5 ) 10/15/2020 11:23 AM CD T Body Mass Index 36.87 10/15/2020 11:23 AM CDT Procedures * ECHOCARDIOGRAM 2D WITH DOPPLER(Performed 07/02/2022) Performed for SOB (shortness of breath), Encounter for long-term (current) use of medications, Sacroiliitis (HCC), Polyarticular psoriatic arthritis (HCC) * XR CHEST 2VW(Performed 04/28/2022) Performed for Sacroiliitis (HCC), Polyarticular psoriatic arthritis (HCC), High risk medications (not anticoagulants) long-term use, Breath, shortness * C-REACTIVE PROTEIN(Performed 08/28/2020) * CBC W AUTO DIFFERENTIAL(Performed 08/28/2020) * ERYTHROCYTE SEDIMENTATION RATE(Performed 08/28/2020) * COMPREHENSIVE METABOLIC PANEL(Performed 08/28/2020) * MRI LUMBAR SPINE WO CONTRAST(Performed 08/07/2020) Performed for Spinal stenosis of lumbar region with neurogenic claudication, Numbness and tingling * MRI CERVICAL SPINE WO CONTRAST(Performed 08/07/2020) Performed for Cervical stenosis of spinal canal, Numbness and tingling * NERVE CONDUCTION TEST(Performed 07/18/2020) Performed for Spinal stenosis of lumbar region with neurogenic claudication, Cervical stenosis of spinal canal, Numbness and tingling * ERYTHROCYTE SEDIMENTATION RATE(Performed 02/28/2020) Performed for Psoriatic arthritis (HCC), Polyarthralgia, High risk medications (not anticoagulants)long-term use, Osteoarthritis of multiple joints, unspecified osteoarthritis type * C-REACTIVE PROTEIN(Performed 02/28/2020) Performed for Psoriatic arthritis (HCC), Polyarthralgia, High risk medications (not anticoagulants)long-term use, Osteoarthritis of multiple joints, unspecified osteoarthritis type * COMPREHENSIVE METABOLIC PANEL(Performed 02/28/2020) Performed for Psoriatic arthritis (HCC), Polyarthralgia, High risk medications (not anticoagulants)long-term use, Osteoarthritis of multiple joints, unspecified osteoarthritis type * CBC W AUTO DIFFERENTIAL(Performed 02/28/2020) Performed for Psoriatic arthritis (HCC), Polyarthralgia, High risk medications (not anticoagulants)long-term use, Osteoarthritis of multiple joints, unspecified osteoarthritis type * TSH(Performed 01/02/2020) Performed for Hypothyroidism, unspecified type * THYROID AB PANEL (TPO AB+THYROGLOB AB)(Performed 01/02/2020) Performed for Hypothyroidism, unspecified type * T3 TOTAL(Performed 01/02/2020) Performed for Hypothyroidism, unspecified type * T4 FREE(Performed 01/02/2020) Performed for Hypothyroidism, unspecified type * IRON + TIBC PANEL(Performed 01/02/2020) Performed for Polyarthralgia, Myalgia, Hx of psoriasis, Elevated sed rate, Vitamin D deficiency * FERRITIN(Performed 01/02/2020) Performed for Polyarthralgia, Myalgia, Hx of psoriasis, Elevated sed rate, Vitamin D deficiency * SS-B (SJOGREN'S) ANTIBODY(Performed 01/02/2020) Performed for Polyarthralgia, Myalgia, Hx of psoriasis, Elevated sed rate, Vitamin D deficiency * SS-A (SJOGREN'S) ANTIBODY(Performed 01/02/2020) Performed for Polyarthralgia, Myalgia, Hx of psoriasis, Elevated sed rate, Vitamin D deficiency * HEPATITIS C ANTIBODY(Performed 01/02/2020) Performed for Polyarthralgia, Myalgia, Hx of psoriasis, Elevated sed rate, Vitamin D deficiency * QUANTIFERON TB-GOLD(Performed 01/02/2020) Performed for Polyarthralgia, Myalgia, Hx of psoriasis, Elevated sed rate, Vitamin D deficiency * RHEUMATOID FACTOR BLOOD QUANTITATIVE(Performed 01/02/2020) Performed for Polyarthralgia, Myalgia, Hx of psoriasis, Elevated sed rate, Vitamin D deficiency * CYCLIC CITRUL PEPTIDE ANTIBODY IGG/IGA (CCP)(Performed 01/02/2020) Performed for Polyarthralgia, Myalgia, Hx of psoriasis, Elevated sed rate, Vitamin D deficiency * JADA BLOOD SCREEN W/REFLEX TITER(Performed 01/02/2020) Performed for Polyarthralgia, Myalgia, Hx of psoriasis, Elevated sed rate, Vitamin D deficiency * VITAMIN D 25-HYDROXY(Performed 01/02/2020) Performed for Polyarthralgia, Myalgia, Hx of psoriasis, Elevated sed rate, Vitamin D deficiency * URIC ACID BLOOD(Performed 01/02/2020) Performed for Polyarthralgia, Myalgia, Hx of psoriasis, Elevated sed rate, Vitamin D deficiency * PROTEIN ELECTROPHORESIS BLOOD(Performed 01/02/2020) Performed for Polyarthralgia, Myalgia, Hx of psoriasis, Elevated sed rate, Vitamin D deficiency * ERYTHROCYTE SEDIMENTATION RATE(Performed 01/02/2020) Performed for Polyarthralgia, Myalgia, Hx of psoriasis, Elevated sed rate, Vitamin D deficiency * C-REACTIVE PROTEIN(Performed 01/02/2020) Performed for Polyarthralgia, Myalgia, Hx of psoriasis, Elevated sed rate, Vitamin D deficiency * COMPREHENSIVE METABOLIC PANEL(Performed 01/02/2020) Performed for Polyarthralgia, Myalgia, Hx of psoriasis, Elevated sed rate, Vitamin D deficiency * CK BLOOD(Performed 01/02/2020) Performed for Polyarthralgia, Myalgia, Hx of psoriasis, Elevated sed rate, Vitamin D deficiency * CBC W AUTO DIFFERENTIAL(Performed 01/02/2020) Performed for Polyarthralgia, Myalgia, Hx of psoriasis, Elevated sed rate, Vitamin D deficiency Results * ECHOCARDIOGRAM 2D WITH DOPPLER (07/02/2022 11:15 AM IMMIGRATION GUARD) 07/02/2022 11:1 5 AM IMMIGRATION GUARD Narrative Procedure Note Unknown, Provider, MD - 07/08/2022 . [facility] [address] [place] [phone] Echocardiography Examination Transthoracic Name: ANTONINO HAWKINS MPI#: MR#: [id number] Admission Number: [id number] Study Date: 07/02/2022 Study Time: 12:17 PM Date Of : 1940 Age: 81 years Height: 65 in. (165.1 cm) Weight: 225 lbs. (102.06 kg) BSA: 2.08 m2 Gender: Female Blood Pressure: 146 mmHg / 82 mmHg Heart Rate: 68 bpm Exam Details Procedure Ordered: ECHOCARDIOGRAM 2D W/DOPPLER Procedure Components: Complete 2D, M-mode, complete spectral Doppler, color Doppler Procedure Status: Routine study Image Quality: Adequate Facility Location: [facility] Indication: Shortness of Breath Procedure Calendering Machine Operator: Sussy Sherman RDCS Ordering Provider: Roque Samson MD Reading Physician: Dulce Perez MD Conclusions Left Ventricle: ? ? Left ventricle is normal in size. ? ? Normal global systolic left ventricular function. ? ? EF range is 50 % -55 %. ? ? Left ventricle wall thickness is normal. ? ? There are no regional wall motion abnormalities. ? ? Doppler parameters are consistent with abnormal left ventricular relaxation (Grade 1 diastolic dysfunction). Mitral Valve: ? ? Mitral leaflets are mildly thickened with normal cuspal separation. ? ? Trace mitral regurgitation. Tricuspid Valve: ? ? Trace tricuspid regurgitation. Patient: ANTONINO HAWKINS Study Date: 07/02/2022 12:17 PM Page 1 of 4 Follow up: Findings Left Ventricle: Left ventricle is normal in size. Normal global systolic left ventricular function. EF evaluated by biplane method of disks. Left ventricle wall thickness is normal. There are no regional wall motion abnormalities. Doppler parameters are consistent with abnormal left ventricular relaxation (Grade 1 diastolic dysfunction). Right Ventricle: Normal size right ventricle. Right ventricular wall thickness is normal. Right ventricular systolic function is normal. Pulmonary artery pressure normal. Left Atrium: The left atrium is normal in size. Right Atrium: The right atrium is normal in size. Mitral Valve: Mitral leaflets are mildly thickened with normal cuspal separation. Trace mitral regurgitation. No mitral valve stenosis. Aortic Valve: Aortic leaflets exhibit normal cuspal separation. No aortic valve regurgitation. There is no aortic stenosis. Tricuspid Valve: Tricuspid valve leaflets are normal. Trace tricuspid regurgitation. No tricuspid valve stenosis. Pulmonic Valve: Pulmonic leaflets exhibit normal cuspal separation. No pulmonic valve regurgitation is evident. There is no pulmonic valve stenosis. Aorta: The aorta is normal. No dilation of the ascending aorta. The aortic root exhibits normal size. Great Vessels: IVC: The inferior vena cava is normal in size and course. Pericardium: The pericardium is normal in appearance. No pericardial effusion. Clinical Data Comment: HTN Measurements Anatomy Label Value Normal Value Aorta AoRoot, MM 2.6 cm (2.2cm - 3.7cm) Aortic Valve AV Vmean 1.07 m/s Aortic Valve AV VTI 33.07 cm Aortic Valve AV PGmax 9 mmHg Aortic Valve AV PGmean 5 mmHg Aortic Valve AV Vmax, Curve 1.46 m/s (1m/s - 1.7m/s) Aortic Valve LVOT VTI / AV VTI 0.64 Aortic Valve JAIRO D (continuity eq. VTI) 1.6 cm?? Aortic Valve JAIRO Index (continuity 0.77 cm??/m?? eq.Vmax) Aortic Valve AV Opening, MM 1.4 cm Aortic Valve LVOT Vmax / AV Vmax 0.64 Interventricular septum IVSd, MM 1 cm (0.6cm - 0.9cm) Left Atrium LADs, MM 3.2 cm (2.7cm - 3.8cm) Patient: ANTONINO HAWKINS Study Date: 07/02/2022 12:17 PM Page 2 of 4 Left Atrium LA Area s, A4C 9.8 cm?? (0cm?? - 20cm??) Left Atrium LA Area s, A2C 16.5 cm?? (0cm?? - 20cm??) Left Atrium LAESV, MOD4 19 ml (22ml - 52ml) Left Atrium LAESV, MOD2 49 ml (22ml - 52ml) Left Atrium LA/AO Ratio, MM 1.22 Left Atrium LAESV index, MOD4 9.1 ml/m?? Left Atrium LAESV index, MOD2 23.6 ml/m?? Left Atrium LAESV index, AL4 10.1 ml/m?? Left Atrium LAESV index, AL2 24.5 ml/m?? Left Ventricle LVOT Vmax 0.93 m/s (0.7m/s - 1.1m/s) Left Ventricle LVOTd 1.8 cm (1.8cm - 2cm) Left Ventricle LVOT VTI 21.22 cm (18cm - 22cm) Left Ventricle LVOT PGmax 3 mmHg Left Ventricle LVDd, MM 5.6 cm (3.9cm - 5.3cm) Left Ventricle LVDs, MM 2.7 cm (2cm - 3.8cm) Left Ventricle LVPWd, MM 1 cm (0.6cm - 0.9cm) Left Ventricle FS, MM 51.79 % (27% - 45%) Left Ventricle LVOT PGmean 2 mmHg Left Ventricle LVOT Vmean 0.68 m/s Left Ventricle EF lower range (%) 50 % Left Ventricle EF upper range (%) 55 % Left Ventricle Diastolic MV E Vmax 0.81 m/s Function Left Ventricle Diastolic MV A Vmax 1.26 m/s Function Left Ventricle Diastolic MV E/A 0.64 Function Left Ventricle Diastolic MV E/E' lateral 9.8 Function Left Ventricle Diastolic MV E/E' septal 13.22 (0.45 - 1.25) Function Left Ventricle Diastolic MV DT 163 ms Function Left Ventricle Diastolic MV E' septal 0.06 m/s Function Left Ventricle Diastolic MV E' lateral 0.08 m/s Function Left Ventricle Diastolic MV E/E' mean 11.57 Function Left Ventricle Diastolic MV E' mean 0.07 m/s Function Mitral Valve MV Dec Plumas 4.99 m/s?? Pulmonic Valve PV PGmax 2 mmHg Pulmonic Valve PV Vmax, Caliper 0.64 m/s (0.6m/s - 0.9m/s) Right Ventricle Diastolic TR Pmax 31 mmHg Function Tricuspid Valve TR Vmax 2.78 m/s Patient: ANTONINO HAWKINS Study Date: 07/02/2022 12:17 PM Page 3 of 4 (No Signature Object) Patient: ANTONINO HAWKINS Study Date: 07/02/2022 12:17 PM Page 4 of 4 Roque Samson MD ECHO ORDERABLES [facility] CCW * XR CHEST 2VW (04/28/2022 3:49 PM CDT) Anatomical Region Laterality Modality Chest Radiographic Josefina ging 04/28/2022 3:58 PM CDT Impressions 04/28/2022 3:59 PM CDT IMPRESSION: No acute disease. > Interpreting Provider: Tong Velarde MD on 04/28/2022 3:59 PM Narrative 04/28/2022 3:59 PM CDT Chest Two Views History: Sacroiliitis. Shortness of breath. COMPARISON: None. FINDINGS: The lungs are clear. No pleural effusion or pneumothorax seen. Heart size normal. Procedure Note Tong Velarde MD - 04/28/2022 Chest Two Views History: Sacroiliitis. Shortness of breath. COMPARISON: None. FINDINGS: The lungs are clear. No pleural effusion or pneumothorax seen. Heart size normal. IMPRESSION: No acute disease. > Interpreting Provider: Togn Velarde MD on 04/28/2022 3:59 PM Roque Samson MD DIAGNOSTIC IMAGING O RDERABLES * C-REACTIVE PROTEIN (08/28/2020 2:55 PM IMMIGRATION GUARD) Only the most recent of3 resultswithin the time period is included. C-Reactive Protein 4.6 <8.0 mg/L [facility] Comment: REPORT COMMENT: FASTING:NO Test Performed at: [facility] [address] [place], [place] ??[phone] RESHMA BIGGS DO,MPH 08/28/2020 2:55 PM IMMIGRATION GUARD 08/28/2020 2:55 PM IMMIGRATION GUARD Kali Golden MD LAB - CHEMISTRY MUNIR OJEDA Performing Organization Address [facility] Co de Phone Number [facility] [address] [place] [phone] * ERYTHROCYTE SEDIMENTATION RATE (08/28/2020 2:55 PM IMMIGRATION GUARD) Only the most recent of3 resultswithin the time period is included. Pathologist [facility] Erythrocyte Sedimentation Rate Westergren 14 < OR = 30 mm/h [facility] Comment: Test Performed at: [employer] [address] [facility] [place] ??[phone] RESHMA BIGGS DO,MPH 08/28/2020 2:55 PM IMMIGRATION GUARD 08/28/2020 2:55 PM IMMIGRATION GUARD Kali Golden MD LAB - HEMATOLOGY DONELL ADDISON Performing Organization Address [facility] de Phone Number [facility] [address] [place] [phone] * CBC WITH DIFFERENTIAL (08/28/2020 2:55 PM IMMIGRATION GUARD) Only the most recent of3 resultswithin the time period is included. Pathologist [facility] White Blood Cell Count 7.8 3.8 - 10.8 Thousand/u L [facility] RBC 4.43 3.80 - 5.10 Million/uL [facility] Hemoglobin 13.6 11.7 - 15.5 g/dL [facility] Hematocrit 41.1 35.0 - 45.0 % [facility] MCV 92.8 80.0 - 100.0 fL [facility] MCH 30.7 27.0 - 33.0 pg [facility] MCHC 33.1 32.0 - 36.0 g/dL [facility] RDW 12.7 11.0 - 15.0 % [facility] Platelet Count 217 140 - 400 Thousand/u L [facility] MPV 10.8 7.5 - 12.5 fL [facility] Neutrophil Absolute 3307 1500 - 7800 cells/uL [facility] Lymphocytes Absolute 3502 850 - 3900 cells/uL [facility] Absolute Monocytes 468 200 - 950 cells/uL [facility] Eosinophils Absolute 406 15 - 500 cells/uL [facility] Basophils Absolute 117 0 - 200 cells/uL [facility] Granulocytes % 42.4 % [facility] Lymphocytes % 44.9 % [facility] Monocytes % 6.0 % [facility] Eosinophils % 5.2 % [facility] Basophils % 1.5 % [facility] Comment: Test Performed at: [employer] [address] [place], [place] ??[phone] RESHMA BIGGS DO,MPH 08/28/2020 2:55 PM IMMIGRATION GUARD 08/28/2020 2:55 PM IMMIGRATION GUARD Kali Golden MD LAB - HEMATOLOGY ORD ERABLES [facility] [address] [place] [address] * (ABNORMAL) COMPREHENSIVE METABOLIC PANEL (08/28/2020 2:55 PM IMMIGRATION GUARD) Only the most recent of3 resultswithin the time period is included. Glucose 111 65 - 139 mg/dL [facility] Comment: ? Non-fasting reference interval BUN 21 7 - 25 mg/dL [facility] Creatinine 0.99(H) 0.60 - 0.93 mg/dL [facility] Comment: For patients >49 years of age, the reference limit for Creatinine is approximately 13% higher for people identified as -Uzbek. eGFR by MDRD 54(L) > OR = 60 mL/min/1. 73m2 [facility] eGFR by MDRD 63 > OR = 60 mL/min/1. 73m2 [facility] BUN/Creatinine Ratio 21 6 - 22 (calc) [facility] Sodium 140 135 - 146 mmol/L [facility] Potassium 4.3 3.5 - 5.3 mmol/L [facility] Chloride 103 98 - 110 mmol/L [facility] CO2 28 20 - 32 mmol/L [facility] Calcium 9.4 8.6 - 10.4 mg/dL [facility] Protein Total 7.0 6.1 - 8.1 g/dL [facility] Albumin 4.3 3.6 - 5.1 g/dL [facility] Globulin Total 2.7 1.9 - 3.7 g/dL (calc) [facility] Albumin/Globulin Ratio 1.6 1.0 - 2.5 (calc) [facility] Bilirubin Total 1.5(H) 0.2 - 1.2 mg/dL [facility] Alkaline Phosphatase 87 37 - 153 U/L [facility] AST 21 10 - 35 U/L [facility] ALT 16 6 - 29 U/L [facility] Comment: Test Performed at: [employer] [address] [place], [place] ??[phone] RESHMA BIGGS DO,MPH 08/28/2020 2:55 PM IMMIGRATION GUARD 08/28/2020 2:55 PM IMMIGRATION GUARD Kali Golden MD LAB - CHEMISTRY MUNIR [place] Organization Address City/State/ZIP Co de Phone Number [facility] [address] [place] [address] * MRI LUMBAR SPINE WO CONTRAST (08/07/2020 11:55 AM IMMIGRATION GUARD) Anatomical Region Laterality Modality Spine Magnetic Resonan ce 08/07/2020 12:3 3 PM IMMIGRATION GUARD Impressions 08/07/2020 12:37 PM IMMIGRATION GUARD Spondylitic and discogenic changes producing various degrees of central and neural foraminal stenosis as described above. *Reading Radiologist: Liu Hayden on 08/07/2020 at 12:37 PM Narrative 08/07/2020 12:37 PM IMMIGRATION GUARD MRI lumbar spine without contrast INDICATION: Spinal stenosis. Back pain. Numbness and tingling. Leg pain. TECHNIQUE: MRI examination of the lumbar spine was performed utilizing multiple pulse sequences in multiple planes without contrast. FINDINGS: There is scoliosis of the spine convex to the right. No fractures are identified. There is slight anterior subluxation of L4 on L5 that is likely arthritic in nature. The remaining vertebral bodies are normally aligned. Degenerative endplate signal changes are seen at multiple levels. The vertebral bodies are of normal height. There is disc space throughout the lumbar spine with desiccation of all intervertebral discs. There are no conus abnormalities. ?? The visualized soft tissues are unremarkable. L1-2: There is posterior osseous ridging and disc bulging. There are degenerative changes of the facet joints. There is mild central stenosis. There is mild bilateral neural foraminal stenosis. L2-3: There is posterior osseous ridging and disc bulging. There is ligamentum flavum and facet hypertrophy. There is mild central stenosis. There is moderate right and moderate to severe left neural foraminal stenosis. L3-4: There is mild posterior osseous ridging with disc bulging. There is ligamentum flavum and facet hypertrophy. There is moderate central stenosis. There is severe right and left neural foraminal stenosis. L4-5: There are marked degenerative changes of the facet joints. There is diffuse disc bulging. There is severe central stenosis with lateral recess stenosis. There is moderate right and mild to moderate left neural foraminal stenosis. L5/S1: There are degenerative changes of the facet joints. There is no evidence for disc bulge or protrusion. There is no significant central stenosis. There is mild bilateral neural foraminal stenosis. Procedure Note Liu Hayden MD - 08/07/2020 MRI lumbar spine without contrast INDICATION: Spinal stenosis. Back pain. Numbness and tingling. Leg pain. TECHNIQUE: MRI examination of the lumbar spine was performed utilizing multiple pulse sequences in multiple planes without contrast. FINDINGS: There is scoliosis of the spine convex to the right. No fractures are identified. There is slight anterior subluxation of L4 on L5 that is likely arthritic in nature. The remaining vertebral bodies are normally aligned. Degenerative endplate signal changes are seen at multiple levels. The vertebral bodies are of normal height. There is disc space throughout the lumbar spine with desiccation of all intervertebral discs. There are no conus abnormalities. The visualized soft tissues are unremarkable. L1-2: There is posterior osseous ridging and disc bulging. There are degenerative changes of the facet joints. There is mild central stenosis. There is mild bilateral neural foraminal stenosis. L2-3: There is posterior osseous ridging and disc bulging. There is ligamentum flavum and facet hypertrophy. There is mild central stenosis. There is moderate right and moderate to severe left neural foraminal stenosis. L3-4: There is mild posterior osseous ridging with disc bulging. There is ligamentum flavum and facet hypertrophy. There is moderate central stenosis. There is severe right and left neural foraminal stenosis. L4-5: There are marked degenerative changes of the facet joints. There is diffuse disc bulging. There is severe central stenosis with lateral recess stenosis. There is moderate right and mild to moderate left neural foraminal stenosis. L5/S1: There are degenerative changes of the facet joints. There is no evidence for disc bulge or protrusion. There is no significant central stenosis. There is mild bilateral neural foraminal stenosis. IMPRESSION Spondylitic and discogenic changes producing various degrees of central and neural foraminal stenosis as described above. *Reading Radiologist: Liu Hayden on 08/07/2020 at 12:37 PM Yehuda T Carmen MD MR ORDERABLES * MRI CERVICAL SPINE WO CONTRAST (08/07/2020 11:54 AM IMMIGRATION GUARD) Anatomical Region Laterality Modality Pelvis Magnetic Resonan ce 08/07/2020 12:4 0 PM IMMIGRATION GUARD Impressions 08/07/2020 12:56 PM IMMIGRATION GUARD Spondylosis. Edited by Aishwarya Roblero on 08/07/2020 12:47 PM *Reading Radiologist: Leonel Beck on 08/07/2020 at 12:56 PM Narrative 08/07/2020 12:56 PM IMMIGRATION GUARD MRI C-SPINE WITHOUT CONTRAST. HISTORY: Cervical stenosis. Images are reviewed in sagittal and axial planes using T1 and T2-weighted sequences. Vertebral heights are normal. There is interspace height loss and dehydration at multiple levels. No pathologic marrow replacement is seen. Cervical spinal cord is unremarkable with no evidence for myelomalacia. At C2-C3, AP diameter of the dural sac is about 12 mm. At C3-C4, AP diameter of the dural sac is 13 mm. At C4-C5, there is a slight disc bulge and slight anterior listhesis. AP diameter of the dural sac is 11 mm. There is mild lateral recess narrowing bilaterally from posterolateral osteophytes. At C5-C6, there is a broad-based disc bulge. AP diameter of the dural sac is 10 mm. There is lateral recess and neural foraminal narrowing seen from posterolateral osteophytes. At C6-C7, there is a broad-based disc bulge. AP diameter of the dural sac is 9 mm. There is lateral recess and neural foraminal narrowing seen from posterolateral osteophytes. At C7-T1, spinal canal is patent with an AP diameter of 12 mm. Procedure Note Leonel Bekc MD - 08/07/2020 MRI C-SPINE WITHOUT CONTRAST. HISTORY: Cervical stenosis. Images are reviewed in sagittal and axial planes using T1 and T2-weighted sequences. Vertebral heights are normal. There is interspace height loss and dehydration at multiple levels. No pathologic marrow replacement is seen. Cervical spinal cord is unremarkable with no evidence for myelomalacia. At C2-C3, AP diameter of the dural sac is about 12 mm. At C3-C4, AP diameter of the dural sac is 13 mm. At C4-C5, there is a slight disc bulge and slight anterior listhesis. AP diameter of the dural sac is 11 mm. There is mild lateral recess narrowing bilaterally from posterolateral osteophytes. At C5-C6, there is a broad-based disc bulge. AP diameter of the dural sac is 10 mm. There is lateral recess and neural foraminal narrowing seen from posterolateral osteophytes. At C6-C7, there is a broad-based disc bulge. AP diameter of the dural sac is 9 mm. There is lateral recess and neural foraminal narrowing seen from posterolateral osteophytes. At C7-T1, spinal canal is patent with an AP diameter of 12 mm. IMPRESSION Spondylosis. Edited by Aishwarya Roblero on 08/07/2020 12:47 PM *Reading Radiologist: Leonel Beck on 08/07/2020 at 12:56 PM Yehuda Morales MD MR ORDERABLES * NERVE CONDUCTION TEST (07/18/2020 2:12 PM IMMIGRATION GUARD) Narrative Yehuda Morales MD - 07/18/2020 2:12 PM IMMIGRATION GUARD Yehuda Morales MD ? 07/18/2020 ??2:13 PM [facility] Neurosciences [facility] [id number] [place] [address] , [address] [address] Test Date: ??07/17/2020 Patient: Antonino Hawkins : 1940 Physician: Yehuda Morales MD Sex: Female Height: 5' 5 Ref Phys: ?? ID#: [id number] Weight: 225 lbs. ?? Patient Complaints: Patient is a 79 year old female who was referred to rule out a neuropathy. Patient presents with complaints of pain, numbness, and tingling in the bilateral upper and lower extremities. ?? Symptoms have been present for 6 months. NCV & EMG Findings: ? Evaluation of the left median motor and the right median motor nerves showed prolonged distal onset latency (L4.6, R6.7 ms) and reduced amplitude (L4.5, R3.5 mV). ? The left Sup Peroneal sensory and the right Sup Peroneal sensory nerves showed no response (14 cm) and no response (Site 2). ? The left sural sensory and the right sural sensory nerves showed no response (Calf) and no response (Site 2). ? The left median/ulnar (palm) comparison and the right median/ulnar (palm) comparison nerves showed no response (Median Palm). ? All remaining nerves (as indicated in the following tables) were within normal limits. ? Left vs. Right side comparison data for the median motor nerve indicates abnormal L-R latency difference (2.1 ms). ? All remaining left vs. right side differences were within normal limits. 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 Site 2 ?2.6 ??17.1 ? Right Radial Anti Sensory (Base 1st Digit) Wrist ?2.6 <3.1 17.3 ??Wrist Base 1st Digit 2.6 0.0 ?? Site 2 ?2.5 ??20.2 ? Left Sup Peroneal Anti Sensory (Ant Lat Mall) 14 cm *NR ??<4.4 ??>5.0 14 cm Ant Lat Mall ??14.0 ??>32 Site 2 *NR ? Right Sup Peroneal Anti Sensory (Ant Lat Mall) 14 cm *NR ??<4.4 ??>5.0 14 cm Ant Lat Mall ??14.0 ??>32 Site 2 *NR ? Site 3 ?15.8 ??28.3 ? Left Sural Anti Sensory (Lat Mall) Calf *NR ??<4.0 ??>5.0 Calf Lat Mall ??14.0 ??>35 Site 2 *NR ? Right Sural Anti Sensory (Lat Mall) Calf *NR ??<4.0 ??>5.0 Calf Lat Mall ??14.0 ??>35 Site 2 *NR ? Motor Summary Table Stim Site NR Onset (ms) Norm Onset (ms) O-P Amp (mV) Norm O-P Amp Amp (Prev) (%) Site1 Site2 Delta-0 (ms) Dist (cm) Constantino (m/s) Norm Constantino (m/s) Left Median Motor (Abd Poll Brev) Wrist ?*4.6 <4.2 *4.5 >5 100.0 Elbow Wrist 4.5 24.0 53 >50 Elbow ?9.1 ??4.1 ??91.1 ? Right Median Motor (Abd Poll Brev) Wrist ?*6.7 <4.2 *3.5 >5 100.0 Elbow Wrist 4.6 24.0 52 >50 Elbow ?11.3 ??2.3 ??65.7 ? Left Peroneal Motor (Ext Dig Brev) Ankle ?3.0 <6.1 4.8 >2.5 100.0 B Fib Ankle 7.5 34.0 45 >38 B Fib ?10.5 ??4.1 ??85.4 Poplt B Fib 1.9 10.0 53 >40 Poplt ?12.4 ??3.0 ??73.2 ? Right Peroneal Motor (Ext Dig Brev) Ankle ?3.2 <6.1 4.8 >2.5 100.0 B Fib Ankle 7.6 34.0 45 >38 B Fib ?10.8 ??3.8 ??79.2 Poplt B Fib 1.7 10.0 59 >40 Poplt ?12.5 ??2.5 ??65.8 ? Left Tibial Motor (Abd Veras Brev) Ankle ?4.0 <6.1 6.9 >3.0 100.0 Knee Ankle 9.1 44.0 48 >35 Knee ?13.1 ??1.0 ??14.5 ? Right Tibial Motor (Abd Veras Brev) Ankle ?3.1 <6.1 12.4 >3.0 100.0 Knee Ankle 10.7 43.0 40 >35 Knee ?13.8 ??0.4 ??3.2 ? Left Ulnar Motor (Abd Dig Minimi) Wrist ?2.7 <4.2 8.4 >3 100.0 B Elbow Wrist 3.6 20.0 56 >53 B Elbow ?6.3 ??8.2 ??97.6 A Elbow B Elbow 1.6 10.0 62 >53 A Elbow ?7.9 ??7.6 ??92.7 ? Right Ulnar Motor (Abd Dig Minimi) Wrist ?3.1 <4.2 7.1 >3 100.0 B Elbow Wrist 3.1 20.0 65 >53 B Elbow ?6.2 ??6.9 ??97.2 A Elbow B Elbow 1.6 10.0 63 >53 A Elbow ?7.8 ??6.7 ??97.1 ? Comparison Summary Table Stim Site NR Peak (ms) Norm Peak (ms) P-T Amp (??V) Site1 Site2 Delta-P (ms) Norm Delta (ms) Left Median/Ulnar Palm Comparison (Wrist - 8cm) Median Palm *NR ??<2.1 ??Median Palm Ulnar Palm ??<0.3 Ulnar Palm ?1.8 <2.1 36.8 ? Right Median/Ulnar Palm Comparison (Wrist - 8cm) Median Palm *NR ??<2.1 ??Median Palm Ulnar Palm ??<0.3 Ulnar Palm ?1.8 <2.1 23.8 ? F Wave Studies NR F-Lat (ms) Lat Norm (ms) L-R F-Lat (ms) L-R Lat Norm Left Median (Mrkrs) (Abd Poll Brev) ?? *30.55 <28.5 *4.15 <2.2 Right Median (Mrkrs) (Abd Poll Brev) ?? *34.70 <28.5 *4.15 <2.2 Left Peroneal (Mrkrs) (EDB) ?? *52.29 <49.4 *6.64 <5.1 Right Peroneal (Mrkrs) (EDB) ?? *58.94 <49.4 *6.64 <5.1 Left Tibial (Mrkrs) (Abd Hallucis) ?? *54.20 <51.2 0.00 <5.7 Right Tibial (Mrkrs) (Abd Hallucis) ?? *54.20 <51.2 0.00 <5.7 Left Ulnar (Mrkrs) (Abd Dig Min) ?? 27.97 <28.7 1.58 <2.5 Right Ulnar (Mrkrs) (Abd Dig Min) ?? *29.55 <28.7 1.58 <2.5 Nerve Conduction Studies Anti Sensory Left/Right Comparison Stim Site L Lat (ms) R Lat (ms) L-R Lat (ms) L Amp (??V) R Amp (??V) L-R Amp (%) Site1 Site2 L Constantino (m/s) R Constantino (m/s) L-R Constantino (m/s) Radial Anti Sensory (Base 1st Digit) Wrist 2.6 2.6 0.0 16.7 17.3 3.5 Wrist Base 1st Digit ? Site 2 2.6 ?? 17.1 ? Sup Peroneal Anti Sensory (Ant Lat Mall) 14 cm ? 14 cm Ant Lat Mall ? Site 2 ? Sural Anti Sensory (Lat Mall) Calf ? Calf Lat Mall ? Site 2 ? Motor Left/Right Comparison Stim Site L Lat (ms) R Lat (ms) L-R Lat (ms) L Amp (mV) R Amp (mV) L-R Amp (%) Site1 Site2 L Constantino (m/s) R Constantino (m/s) L-R Constantino (m/s) Median Motor (Abd Poll Brev) Wrist *4.6 *6.7 *2.1 *4.5 *3.5 22.2 Elbow Wrist 53 52 1 Elbow 9.1 11.3 2.2 4.1 2.3 43.9 ? Peroneal Motor (Ext Dig Brev) Ankle 3.0 3.2 0.2 4.8 4.8 0.0 B Fib Ankle 45 45 0 B Fib 10.5 10.8 0.3 4.1 3.8 7.3 Poplt B Fib 53 59 6 Poplt 12.4 12.5 0.1 3.0 2.5 16.7 ? Tibial Motor (Abd Veras Brev) Ankle 4.0 3.1 0.9 6.9 12.4 44.4 Knee Ankle 48 40 8 Knee 13.1 13.8 0.7 1.0 0.4 60.0 ? Ulnar Motor (Abd Dig Minimi) Wrist 2.7 3.1 0.4 8.4 7.1 15.5 B Elbow Wrist 56 65 9 B Elbow 6.3 6.2 0.1 8.2 6.9 15.9 A Elbow B Elbow 62 63 1 A Elbow 7.9 7.8 0.1 7.6 6.7 11.8 ? Comparison Left/Right Comparison Stim Site L Lat (ms) R Lat (ms) L-R Lat (ms) L Amp (??V) R Amp (??V) L-R Amp (%) Median/Ulnar Palm Comparison (Wrist - 8cm) Median Palm ? Ulnar Palm 1.8 1.8 0.0 36.8 23.8 35.3 Waveforms: ? Yehuda Morales MD NEUROLOGY ORDERABLES * TSH (01/02/2020 10:50 AM CDT) TSH 2.4133 0.35 - 4.94 uIU/mL [facility] INSURANCE BILL Comment:FASTING Blood BLOOD SPECIMEN / Unknown 01/02/2020 10:50 AM CDT 01/02/2020 Narrative Resulting Agency Comment Lab Testing performed at: [facility] [address] [address] ?? Kuldip MICHAEL [id number] Janay Venegas MD LAB - CHEMISTRY ORDERABLES Performing Organization Address City/[facility] Co de Phone Number [facility] INSURANCE BILL [address] [place] [address] * (ABNORMAL) THYROID AB PANEL (TPO AB+THYROGLOB AB) (01/02/2020 10:49 AM CDT) Pathologist [facility] Thyroid Peroxidase TPO Antibody <9 0 - 34 IU/mL [facility] INSURANCE BILL Thyroglobulin Antibody 2.4(H) 0.0 - 0.9 IU/mL [facility] INSURANCE BILL Comment: Thyroglobulin Antibody measured by [employer] FASTING Blood BLOOD SPECIMEN / Unknown 01/02/2020 10:49 AM CDT 01/02/2020 Narrative Resulting Agency Comment Lab Testing performed at: [facility] ??[facility] [phone] Janay Venegas MD LAB - CHEMISTRY ORDERABLES Performing Organization Address [facility] de Phone Number [facility] INSURANCE BILL [address] [place] [address] * T4 FREE (01/02/2020 10:49 AM CDT) [facility] T4 Free 1.04 0.70 - 1.48 ng/dL [facility] INSURANCE BILL Comment:FASTING Blood BLOOD SPECIMEN / Unknown 01/02/2020 10:49 AM CDT 01/02/2020 Narrative Resulting Agency Comment Lab Testing performed at: [facility] [address] [address] ?? Kuld[place] MICHAEL [id number] Janay Venegas MD LAB - CHEMISTRY ORDERABLES Performing Organization Address City/[facility] Co de Phone Number [facility] INSURANCE BILL [address] [place] [address] * T3 TOTAL (01/02/2020 10:49 AM CDT) [facility] T3 Total 0.83 0.58 - 1.59 ng/mL [facility] INSURANCE BILL Comment:FASTING Blood BLOOD SPECIMEN / Unknown 01/02/2020 10:49 AM CDT 01/02/2020 Narrative Resulting Agency Comment Lab Testing performed at: [facility] [address] [place] [address] ??[facility] [phone] Janya Venegas MD LAB - CHEMISTRY ORDERABLES Performing Organization Address City/[facility] Co de Phone Number [facility] INSURANCE BILL [address] [place] [address] * CYCLIC CITRUL PEPTIDE ANTIBODY IGG/IGA (CCP) (01/02/2020 10:44 AM CDT) CCP Antibodies IgG/IgA 9 0 - 19 units [facility] INSURANCE BILL Comment: ? Negative ? <20 ? Weak positive ?20 - 39 ? Moderate positive ??40 - 59 ? Strong positive ?>59 FASTING Blood BLOOD SPECIMEN / Unknown 01/02/2020 10:44 AM CDT 01/02/2020 Narrative Resulting Agency Comment Lab Testing performed at: [address] ??[facility] [phone] Kali Golden MD LAB - SEROLOGY ORDER RADHA Performing Organization Address City/[facility]/ZIP Co de Phone Number [facility] INSURANCE BILL [address] [place] [address] * URIC ACID BLOOD (01/02/2020 10:44 AM CDT) Pathologist [facility] Uric Acid 4.8 2.5 - 7.1 mg/dL [facility] INSURANCE BILL Comment: ?Therapeutic target for gout patients: <6.0 FASTING Blood BLOOD SPECIMEN / Unknown 01/02/2020 10:44 AM CDT 01/02/2020 Narrative Resulting Agency Comment Lab Testing performed at: [facility] [address] ??[facility] [phone] Kali Golden MD LAB - CHEMISTRY MUNIR OJEDA Performing Organization Address [facility] de Phone Number [email or web address] INSURANCE BILL [address] [place] [address] * RHEUMATOID FACTOR BLOOD QUANTITATIVE (01/02/2020 10:44 AM CDT) Pathologist [facility] Rheumatoid Factor 12.8 0.0 - 13.9 IU/mL [facility] INSURANCE BILL Comment:FASTING Blood BLOOD SPECIMEN / Unknown 01/02/2020 10:44 AM CDT 01/02/2020 Narrative Resulting Agency Comment Lab Testing performed at: [facility] [address] ??[place] [phone] Kali Golden MD LAB - CHEMISTRY MUNIR OJEDA Performing Organization Address [facility] de Phone Number [facility] INSURANCE BILL [address] [place] [address] * JADA BLOOD SCREEN W/REFLEX TITER (01/02/2020 10:44 AM CDT) Pathologist [facility] JADA Negative [facility] INSURANCE BILL Comment: ?Negative ?? <1:80 ?Borderline ??1:80 ?Positive ?? >1:80 FASTING Blood BLOOD SPECIMEN / Unknown 01/02/2020 10:44 AM CDT 01/02/2020 Narrative Resulting Agency Comment Lab Testing performed at: [facility] [address] ??[place] [phone] Kali Golden MD LAB - CHEMISTRY MUNIR OJEDA Performing Organization Address [facility] Co de Phone Number [facility] INSURANCE BILL [address] [place] [address] * SS-B (SJOGREN'S) ANTIBODY (01/02/2020 10:44 AM CDT) Sjogren's Antibodies (SSB) <0.2 0.0 - 0.9 AI [email or web address] INSURANCE BILL Comment:FASTING Blood BLOOD SPECIMEN / Unknown 01/02/2020 10:44 AM CDT 01/02/2020 Narrative Resulting Agency Comment Lab Testing performed at: [facility] [address] ??[facility] [phone] Kali Golden MD LAB - CHEMISTRY MUNIR OJEDA Performing Organization Address [facility] Co de Phone Number [facility] INSURANCE BILL [address] [place] [address] * SS-A (SJOGREN'S) ANTIBODY (01/02/2020 10:44 AM CDT) Sjogren's Antibodies (SSA) <0.2 0.0 - 0.9 AI [facility] INSURANCE BILL Comment:FASTING Blood BLOOD SPECIMEN / Unknown 01/02/2020 10:44 AM CDT 01/02/2020 Narrative Resulting Agency Comment Lab Testing performed [facility]: [facility] [address] [facility] ??[facility] [phone] Kali Golden MD LAB - CHEMISTRY MUNIR OJEDA Performing Organization Address City/[facility] Co de Phone Number [facility] INSURANCE BILL [address] [place] [address] * VITAMIN D 25-HYDROXY (01/02/2020 10:44 AM CDT) Vitamin D, 25 Hydroxy 37.9 30.0 - 100.0 ng/mL [facility] Comment: Vitamin D deficiency has been defined by the [place] and an Endocrine Society practice guideline as a level of serum 25-OH vitamin D less than 20 ng/mL (1,2). The Endocrine Society went on to further define vitamin D insufficiency as a level between 21 and 29 ng/mL (2). 1. IOM ([place] [employer] [place]). 2010. Dietary reference ?? intakes for calcium and D. [place]: The ?? National Academies Press. 2. Costa MF, Stevenson STEELE, Seun BOWMAN, et al. ?? Evaluation, treatment, and prevention of vitamin D ?? deficiency: an Endocrine Society clinical practice ?? guideline. JCEM. 2010; 96(7):1911-30. FASTING Blood BLOOD SPECIMEN / Unknown 01/02/2020 10:44 AM CDT 01/02/2020 Narrative Resulting Agency Comment Lab Testing performed at: [facility] [address] [facility] ??[facility] [phone] Kali Golden MD LAB - CHEMISTRY MUNIR OJEDA Performing Organization Address [facility]/ZIP Co de Phone Number [email or web address] INSURANCE BILL [address] [place] [address] * QUANTIFERON TB-GOLD (01/02/2020 10:44 AM CDT) Pathologist [facility] QuantiFERON Incubation Incubation performed. [facility] QuantiFERON Criteria [facility] INSURANCE BILL Comment: The QuantiFERON-TB Gold Plus result is determined by subtracting the Nil value from either TB antigen (Ag) tube. The mitogen tube serves as a control for the test. QuantiFERON TB1 Ag Value 0.03 IU/mL [facility] INSURANCE BILL QuantiFERON TB2 Ag Value 0.04 IU/mL [facility] INSURANCE BILL QuantiFERON Nil Value 0.03 IU/mL [facility] INSURANCE BILL QuantiFERON Mitogen Value >10.00 IU/mL [facility] INSURANCE BILL QuantiFERON-TB Gold Plus Negative Negative [facility] INSURANCE BILL Comment:FASTING Blood BLOOD SPECIMEN / Unknown 01/02/2020 10:44 AM CDT 01/02/2020 Narrative Resulting Agency Comment Lab Testing performed at: [facility] [address] [place] [address] Road ??[facility] [phone] Kali Golden MD LAB - CHEMISTRY MUNIR OJEDA Performing Organization Address City/[facility]/ZIP Co de Phone Number [facility] INSURANCE BILL [address] [place] [address] * (ABNORMAL) IRON + TIBC PANEL (01/02/2020 10:44 AM CDT) TIBC 232(L) 250 - 450 ug/dL [facility] INSURANCE BILL UIBC 109(L) 118 - 369 ug/dL [facility] INSURANCE BILL Iron 123 27 - 139 ug/dL [facility] INSURANCE BILL Iron Saturation 53 15 - 55 % [facility] INSURANCE BILL Comment:FASTING Blood BLOOD SPECIMEN / Unknown 01/02/2020 10:44 AM CDT 01/02/2020 Narrative Resulting Agency Comment Lab Testing performed at: [facility] ??[facility] [phone] Kali Golden MD LAB - CHEMISTRY MUNIR OJEDA [facility] INSURANCE BILL [address] [place] [address] * (ABNORMAL) CK BLOOD (01/02/2020 10:44 AM CDT) CK 227(H) 32 - 182 U/L [facility] INSURANCE BILL Comment: ? Please note reference interval change FASTING Blood BLOOD SPECIMEN / Unknown 01/02/2020 10:44 AM CDT 01/02/2020 Narrative Resulting Agency Comment Lab Testing performed at: [facility] ??[facility] [phone] Kali Golden MD LAB - CHEMISTRY MUNIR OJEDA Performing Organization Address [facility] de Phone Number [facility] INSURANCE BILL [address] [place] [address] * PROTEIN ELECTROPHORESIS BLOOD (01/02/2020 10:44 AM CDT) Albumin 3.9 2.9 - 4.4 g/dL [facility] INSURANCE BILL Alpha-1 Globulin 0.2 0.0 - 0.4 g/dL [facility] INSURANCE BILL Kdoxg-3-Fwgfapbj 0.9 0.4 - 1.0 g/dL [facility] INSURANCE BILL Beta-Globulin 1.3 0.7 - 1.3 g/dL [facility] INSURANCE BILL Gamma Globulin 1.5 0.4 - 1.8 g/dL [facility] INSURANCE BILL M-Dheeraj Not Observed Not Observed g/dL [facility] INSURANCE BILL Globulin Total 3.9 2.2 - 3.9 g/dL [facility] INSURANCE BILL Albumin/Globulin Ratio 1.0 0.7 - 1.7 [facility] INSURANCE BILL Please Note [facility] INSURANCE BILL Comment: Protein electrophoresis scan will follow via computer, mail, or button breaker delivery. P E Interpretation, S [facility] INSURANCE BILL Comment: The SPE pattern appears unremarkable. Evidence of monoclonal protein is not apparent. FASTING Blood BLOOD SPECIMEN / Unknown 01/02/2020 10:44 AM CDT 01/02/2020 Narrative Resulting Agency Comment Lab Testing performed at: [facility] [address] [facility] ??[facility] [phone] Kali Golden MD LAB - CHEMISTRY MUNIR OJEDA Performing Organization Address [facility] Co de Phone Number [facility] INSURANCE BILL [address] [place] [address] * HEPATITIS C ANTIBODY (01/02/2020 10:44 AM CDT) Hepatitis C Antibody <0.1 0.0 - 0.9 s/co ratio [facility] INSURANCE BILL Comment: ? Negative: ? < 0.8 ?Indeterminate: 0.8 - 0.9 ? Positive: ? > 0.9 ? . ?The CDC recommends that a positive HCV antibody result ?be followed up with a HCV Nucleic Acid Amplification ?test (163772). FASTING Blood BLOOD SPECIMEN / Unknown 01/02/2020 10:44 AM CDT 01/02/2020 Narrative Resulting Agency Comment Lab Testing performed at: [facility] [address] ??[facility] [phone] Kali Golden MD LAB - CHEMISTRY MUNIR OJEDA [facility] INSURANCE BILL [address] [place] [address] * (ABNORMAL) FERRITIN (01/02/2020 10:44 AM CDT) Ferritin 175(H) 15 - 150 ng/mL [facility] INSURANCE BILL Comment:FASTING Blood BLOOD SPECIMEN / Unknown 01/02/2020 10:44 AM CDT 01/02/2020 Narrative Resulting Agency Comment Lab Testing performed at: [facility] [address] ??[facility] [phone] Kali Golden MD LAB - CHEMISTRY MUNIR OJEDA [facility] INSURANCE BILL [address] [place] [address] Care Teams Roustabout Relationship Specialty Start Date End Date Ivan Santos MD [address] [place] [address] PCP - General Internal Medicine 09/19/19 [place] [address] [place] [phone] Rheumatology 01/18/20
--- OUTSIDE RECORDS SUMMARY | 2024-09-05 01:18 | XMS_ITS | Clinical Summary ---
Author Organization [facility] Address [address] [place] [address] Care Team Providers Care Cosmetic Surgeon Name Role Phone Ivan Santos MD Primary Care Provider [phone] Kali Golden MD Unavailable Source Comments [facility],non-owned Affiliates and Associated Physician Practices is amultiple site organization consisting of ambulatory clinics and hospital sitesin [place], [place], [place] and [place]. This disclosure is being madepursuant to the Care Everywhere program and may not contain all information available regarding this patient. Last updated 18.[facility] Allergies Active Allergy Reactions Criticality Noted Date Comments Codeine Psychiatric Medium 01/02/2020 Crying, halluctinations Penicillins Swelling Medium 01/02/2020 Medications * Be aware that medications may not be up to date on this document. Alwaysverify current medications with the patient. Medication Sig Dispensed Refills Start Date End Date Status Vitamin D3 (CHOLECALCIFEROL) 50 MCG (1999) capsule Take 2,000 Units by mouth once daily Active estradiol (ESTRACE) 0.1 MG/GM vaginal cream Apply / applicator (1g) to the vagina 2-3 times per week (such as Thursday/Thursday/ Thursday) 10/29/2018 Active ibuprofen (MOTRIN) 200 MG tablet Take 400 mg by mouth every 8 hours as needed Active levothyroxine (SYNTHROID) 125 MCG tablet 125 daily except Sundays just 1/2 tab 09/22/2019 Active losartan (COZAAR) 100 MG tablet Take 1 tablet by mouth once daily 10/18/2019 Active ketoconazole (NIZORAL) 2 % shampoo APPLY TOPICALLY TO DAMP SKIN ON THE SCALP FACE CHEST AND ARMPITS LATHER LEAVE ON 5 MINUTES AND RINSE 12/06/2019 Active mupirocin (BACTROBAN) 2 % ointment APPLY OINTMENT TOPICALLY TO AFFECTED AREA ON THE CHEST THREE TIMES DAILY 12/06/2019 Active folic acid (FOLVITE) 1 MG tabletIndications:Pso riatic arthritis (HCC),Polyarthralgia, High risk medications (not anticoagulants) long-term use,Osteoarthritis of multiple joints, unspecified osteoarthritis type Take 1 (one) tablet by mouth once daily 90 tablet 4 08/24/2020 Active Active Problems No known active problems Immunizations Name Administration Dates Next Due INFLUENZA VACCINE, HIGH-DOSE , QUADR. (FLUZONE HIGH-DOSE QUADRIVALENT; 65Y+), 0.7 ML (HD-IIV4) 08/21/2012 PNEUMOCOCCAL PPSV23 08/06/2017 Pneumococcal Pcv13 Conj 11/29/2014 Family History Medical History Relation Name Comments Thyroid Disease Daughter Asthma Mother CAD (Coronary Artery Disease) Mother [place] Hypertension Mother Hyperlipidemia Sister Hypertension Sister Thyroid Disease Sister Relation Name Status Comments Daughter Mother Sister Social History Tobacco Use Types Packs/Day Years [...] - Oxygen Saturation 97% 07/05/2020 1:03 PM RECORD TABULATING CLERK Inhaled Oxygen Concentration - - Weight 102.1 kg (225 lb) 10/15/2020 11:23 AM CDT Height 166.4 cm (5' 5.5 ) 10/15/2020 11:23 AM CD T Body Mass Index 36.87 10/15/2020 11:23 AM CDT Plan of Treatment Health Maintenance Due Date Last Done Comments BONE DENSITY TESTING 1940 MEDICARE AWV ? 12 MONTHS 1940 DTAP/TDAP/TD VACCINES (1 - Tdap) 11/28/1959 ZOSTER VACCINE (1 of 2) 1990 Respiratory Syncytial Virus (RSV) Vaccine Pt: or over 60 yrs (1 - 1-dose 75+ series) 11/28/2015 COVID-19 VACCINE ( - 2023-2 5 season) 2024 INFLUENZA VACCINE (#1) 2024 08/21/2012 DEPRESSION SCREENING 08/03/2024 PNEUMOCOCCAL VACCINE 50+ Completed 018, 11/29/2014 HEPATITIS B VACCINE Aged Out No longe r eligible based on patient's age to complete this topic HIB VACCINE Aged Out No longer eligi ble based on patient's age to complete this topic HPV VACCINE Aged Out No longer eligi ble based on patient's age to complete this topic MENINGOCOCCAL (Group B) VACCINE Aged Out No longer eligible b ased on patient's age to complete this topic MENINGOCOCCAL VACCINE Aged Out No ed preeti eligible based on patient's age to complete this topic Additional Health Concerns Infection Onset Date Last 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
--- OUTSIDE RECORDS SUMMARY | 2024-09-05 01:18 | XMS_ITS | Referral Summary ---
Author Organization [facility] Address [address] [place] [address] Care Team Providers Care Steaming Cabinet Tender Name Role Phone Ivan Santos MD Primary Care Provider [phone] Kali Golden MD Unavailable Source Comments [facility],non-owned Affiliates and Associated Physician Practices is amultiple site organization consisting of ambulatory clinics and hospital sitesin [place], [place], [place] and [place]. This disclosure is being madepursuant to the Care Everywhere program and may not contain all information available regarding this patient. 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
[2024-09-05] MEDS: ONDANSETRON INJ 4 MG/2 ML VIAL IV PUSH (01:21)
[2024-09-05 01:25] LABS: Alanine Aminotransferase 17 U/L (6-35); Albumin Level 3.6 g/dL (3.5-5.1); Alkaline Phosphatase 83 U/L (38-126); Anion Gap 9 mmol/L (4-12); Aspartate Amino Transferase 29 U/L (14-36); Bilirubin,Total 1.7 mg/dL (0.2-1.3); Blood Urea Nitrogen 17 mg/dL (7-17); Calcium 9.2 mg/dL (8.4-10.2); Carbon Dioxide 26 mmol/L (22-30); Chloride 101 mmol/L (98-107); Estimated CRCL calculation 44 ml/min; Estimated Glomerular Filt Rate 53; Glucose 102 mg/dL (65-110); Magnesium 1.6 mg/dL (1.6-2.3); Potassium 3.9 mmol/L (3.4-5.0); Sodium 136 mmol/L (137-145)
[2024-09-05] MEDS: MAGNESIUM SULF 1 GM/D5W 100 ML 1 GM/100 ML BAG IVPB (01:40)
--- NOTE | 2024-09-05 01:49 | ED_ITS ---
HPI - General Adult General Chief complaint: Upper Respiratory Infection Stated complaint: flu symptoms Time Seen by Provider: 09/05/24 01:05 History of Present Illness HPI narrative: Patient 83-year-old female who presents emergency department chief complaint of body aches and flu-like symptoms patient reports her symptoms started in the last 48 hours patient reports she has had chills generalized weakness had some nausea patient reports that her is also sick with similar symptoms. Related Data Home Medications ?Medication ?Instructions ?Recorded ?Confirmed ?Last Taken ?Type levothyroxine 125 mcg tablet 125 mcg PO DAILY 04/11/24 04/19/24 04/11/24 History losartan 100 mg tablet 100 mg PO DAILY 04/11/24 04/19/24 04/11/24 History Allergies Allergy/AdvReac Type Severity Reaction Status Date / Time codeine Allergy Mild ANXIETY Verified 09/05/24 00:11 Penicillins Allergy Mild ITCHING Verified 09/05/24 00:11 AND SWELLING Review of Systems 2 Review of Systems: A 10 system review of systems was completed on the patient and is negative except for what is stated in the HPI. Nursing and ancillary documentation was reviewed. [facility] Past Medical History Medical History Psoriatic arthritis Hypothyroidism Hypertension Surgical History Surgical History History of left cataract extraction History of endometrial biopsy History of total abdominal hysterectomy and bilateral salpingo-oophorectomy (01/2015) Family History Family History Son Blastic NK-cell lymphoma Mother Hypertension Acute myocardial infarction Congestive heart failure Mother Chronic obstructive pulmonary disease Social History Social History Social History: Surrogate medical decision maker: Emerald Garcia, daughter. Code status: Full code. Smoking status: Never smoker Alcohol intake: current Other substance usage details: 1 drink approximately every 4 months Do You Feel Safe in your Home?: Yes Lack of Transportation: No Lack of Food: Never True Current Housing: I Have Housing Concerned About Future Housing: No Difficulty Paying Gas/Electric Bills: No Difficulty Paying for Meds: No Currently Unemployed: No Education: Trade/Vocational Certificate Difficulty w/ Childcare or Family Care: No Spiritual care concerns: No Exam 2 Narrative: GENERAL: Well-appearing, well-nourished, and in no acute distress. HEAD: Normocephalic, atraumatic. EYES: PERRLA and EOMI. ENT: Nares clear, no rhinorrhea or epistaxis. Mucous membranes moist. NECK: Supple. CHEST: Clear to auscultation. No respiratory distress. HEART: Regular rate and rhythm. No murmur heard. Normal peripheral pulses. ABDOMEN: Soft, nontender, nondistended, normal active bowel sounds. EXTREMITIES: Normal range of motion. No edema. SKIN: Warm, dry, no rash. NEURO: No focal deficits. Alert and oriented x3. PSYCH: Normal mood and affect. Course Vital Signs Vital signs: Vital Signs Temperature 37.5 C 09/05/24 00:05 Pulse Rate 95 09/05/24 00:05 Respiratory Rate 20 09/05/24 00:05 Blood Pressure 161/62 H 09/05/24 00:05 Pulse Oximetry 96 09/05/24 00:05 Oxygen Delivery Room Air 09/05/24 00:05 Temperature 37.5 C 09/05/24 00:05 Pulse Rate 97 09/05/24 02:34 Respiratory Rate 20 09/05/24 02:34 Blood Pressure 149/41 H 09/05/24 01:47 Pulse Oximetry 92 09/05/24 02:00 Oxygen Delivery Room Air 09/05/24 01:10 Medical Decision Making Vital Signs Vital Signs: Vital Signs Temperature 37.5 C 09/05/24 00:05 Pulse Rate 95 09/05/24 00:05 Respiratory Rate 20 09/05/24 00:05 Blood Pressure 161/62 H 09/05/24 00:05 Pulse Oximetry 96 09/05/24 00:05 Oxygen Delivery Room Air 09/05/24 00:05 Temperature 37.5 C 09/05/24 00:05 Pulse Rate 97 09/05/24 02:34 Respiratory Rate 20 09/05/24 02:34 Blood Pressure 149/41 H 09/05/24 01:47 Pulse Oximetry 92 09/05/24 02:00 Oxygen Delivery Room Air 09/05/24 01:10 Lab Data 09/05/24 01:08 09/05/24 01:08 Labs: Lab Results 09/05/24 09/05/24 Range/Units 00:13 01:08 WBC 8.4 (4.5-10.0) K/mm3 RBC 4.01 L (4.2-5.4) M/mm3 Hgb 12.4 (12.0-15.0) g/dL Hct 38.3 (37.0-47.0) % MCV 95.5 (80-100) fl MCH 30.9 (26-34) pg MCHC 32.4 (32-36) g/dl RDW 12.5 (11.5-14.5) % Plt Count 191 (150-375) k/mm3 MPV 9.6 (7.4-10.4) fl Immature Gran % (Auto) 0.4 (0-0.5) % Neut % (Auto) 72.1 (45.5-73.1) % Lymph % (Auto) 16.8 L (18.3-44.2) % [place] % (Auto) 7.0 (2.6-8.5) % Eos % (Auto) 2.9 (0-4.4) % Baso % (Auto) 0.8 (0.2-1.2) % Lymph # (Auto) 1.41 (0.9-3.2) K/mm3 [place] # (Auto) 0.6 (0.1-0.6) K/mm3 Eos # (Auto) 0.2 (0-0.3) K/mm3 Baso # (Auto) 0.1 (0.0-0.1) K/mm3 Abs Immat Gran (auto) 0.03 (0.00-0.031) K/mm3 Absolute Neuts (auto) 6.0 (1.3-6.7) K/mm3 Absolute Nucleated RBC 0.000 (0.0-0.012) K/mm3 Nucleated RBC % 0.0 (0.0-0.2) % Sodium 136 L (137-145) mmol/L Potassium 3.9 (3.4-5.0) mmol/L Chloride 101 (98-107) mmol/L Carbon Dioxide 26 (22-30) mmol/L Anion Gap 9 (4-12) mmol/L BUN 17 (7-17) mg/dL Creatinine 1.00 (0.7-1.0) mg/dL Estim Creat Clear Calc 44 ml/min Estimated GFR 53 L (59 - ) Glucose 102 (65-110) mg/dL Calcium 9.2 (8.4-10.2) mg/dL Magnesium 1.6 (1.6-2.3) mg/dL Total Bilirubin 1.7 H (0.2-1.3) mg/dL AST 29 (14-36) U/L ALT 17 (6-35) U/L Alkaline Phosphatase 83 (38-126) U/L Total Protein 7.0 (6.3-8.2) g/dL Albumin 3.6 (3.5-5.1) g/dL Influenza A (RT-PCR) Positive A (Negative) Influenza B (RT-PCR) Negative (Negative) RSV (RT-PCR) Negative (Negative) SARS-CoV-2 RNA (RT-PCR) Negative (Negative) Discharge Plan Discharge Clinical Impression: Influenza Patient Disposition: Home, Self-Care Condition: Stable Instructions: Antibiotic Form, Influenza (ED) Patient Language: Faroese Prescriptions: New oseltamivir [Tamiflu] 30 mg capsule 30 mg PO BID 5 Days Qty: 10 0RF ondansetron 4 mg tablet,disintegrating 4 mg PO Q8H PRN (Reason: nausea and vomiting) Qty: 10 0RF No Action hydrochlorothiazide 12.5 mg tablet 12.5 mg PO DAILY Qty: 30 5RF levothyroxine 125 mcg tablet 125 mcg PO DAILY losartan 100 mg tablet 100 mg PO DAILY aspirin 325 mg Tablet 81 mg PO HS Qty: 30 0RF hydralazine 25 mg Tablet 25 mg PO BID Qty: 60 1RF Eliquis 5 mg Tablet 10 mg PO DIRECTED Qty: 72 1RF Rx Instructions: 10mg (2 tabs) q12hrs for 7 days then decrease to 5mg (1 tab) q12hrs acetaminophen 325 mg Tablet 650 mg PO Q4H PRN (Reason: Mild Pain (1-3) Or Fever) Qty: 30 0RF apixaban 5 mg tablet 5 mg tablet 0RF carvedilol [Coreg] 12.5 mg tablet 12.5 mg PO Q12HR Qty: 180 2RF Follow-up/Referrals: Roland,Michi Bartlett MD [Primary Care Provider] - Time of Disposition: 02:39
[2024-09-05] MEDS: IPRATROPIUM 0.5 MG/ALBUTEROL SULFATE 2.5 MG AMPUL.NEB 3 ML INHALATION (02:33)
--- NOTE | 2024-09-05 02:46 | PC.NURSE ---
Patient used bedside commode to urinate. Patient still infusing magnesium IV. Patient adjusted in bed. Call light within reach.
[2024-09-05] MEDS: OSELTAMIVIR PHOSPHATE 30 MG CAPSULE PO (02:50)
--- NOTE | 2024-09-05 02:55 | PC.NURSE ---
This RN called patients SO upon request, Zan at [phone] to come pick patient up.
--- NOTE | 2024-09-05 02:57 | PC.NURSE ---
Called patients daughter Patt, at [phone] to give update and plan for discharge.
== END 2024-09-05 03:12 | disposition home or self-care (01) ==
PROVIDERS: Physician Assistant; Emergency Provider Emergency Medicine; PCP Internal Medicine
DX: J11.1 Influenza due to unidentified influenza virus with other respiratory manifestations (principal); Z20.822 Contact with and (suspected) exposure to COVID-19; I10 Essential (primary) hypertension; E03.9 Hypothyroidism, unspecified; L40.50 Arthropathic psoriasis, unspecified; Z98.42 Cataract extraction status, left eye; Z90.710 Acquired absence of both cervix and uterus; Z90.79 Acquired absence of other genital organ(s); Z90.722 Acquired absence of ovaries, bilateral; Z79.01 Long term (current) use of anticoagulants; Z79.899 Other long term (current) drug therapy
CPT/HCPCS: 36415; 71045; 80053; 83735; 85025; 87637; 94640; 96361; 96374; 99284; A9270; J2405; J3475; J7030